=== PATIENT | male | born 2005 | race Caucasian/White ===

== ENCOUNTER 2023-10-03 17:46 | Inpatient (IN) | payer SELFPAY ==
[2023-10-03] MEDS: LORazepam 2 mg/mL INJ 1 mL IM (18:30)
[2023-10-03] MEDS: diphenhydrAMINE 50 mg/mL SDV 1mL IM (18:30)
[2023-10-03] MEDS: haloperidol inj 5 mg/mL INJ 1 mL IM (18:30)
--- NOTE | 2023-10-03 19:11 | ED.C_ITS ---
Documented by User: Harsh Bryant 10/03/23 22:53 HPI - Psych 2 General: Chief Complaint: Psychiatric Symptoms Stated Complaint: 96 eval Time Seen by Provider: 10/03/23 17:53 History of Present Illness: 18-year-old male brought in by law enfor cement chief complaint follow-up for acute psychosis patient was making homicidal suicidal threats against his family self patient has had grandiose ideas appearing to be acutely psychotic reporting that he is God as well as not sleeping and manic history is quite limited as well as his family only speaks Tuvaluan. Patient apparently did make threats about killing his brother prior to arrival upon being picked up by law enforcement patient was demonstrating both verbally aggressive and physically aggressive behavior in which she was detained patient presents to the ER for further assessment and management. Patient upon arrival did want body cams to be recorded in which she was speaking to the body cam as the people on the other side was watching him. Associated symptoms: Reports auditory hallucinations, visual hallucinations, depression, homicidal ideation and suicidal ideation Review of Systems 2 General: Reports: 10 or more systems reviewed and unremarkable except in HPI and below Const: Denies: fever(s), chills, fatigue or malaise Eyes: Denies: change in vision or blurry vision Card: Denies: chest pain or palpitations Resp: Denies: dyspnea or productive cough GI: Denies: abdominal pain, nausea or vomiting : Denies: flank pain Musc: Denies: extremity pain or extremity swelling Skin/Breast: Denies: rash or pruritus Neuro: Denies: headache(s) Psych: Reports: depression, visual hallucinations, auditory hallucinations, suicidal ideation and homicidal ideation; Denies: anxiety Jacobo/Lymph: Denies: easy bleeding All/Imm: Denies: urticaria, throat swelling or facial swelling Physical Exam 2 Const: COMMON NORMALS: no acute distress, patient oriented x3 and healthy appearing HENMT: COMMON NORMALS: normocephalic and atraumatic HEAD & SCALP: n ormocephalic and atraumatic Eye: COMMON NORMALS: Equal, round and reactive pupils present and EOMs intact bilaterally PUPIL: Yes Equal, round and reactive pupils present Neck/C-Spine: COMMON NORMALS: full ROM, supple and no JVD Lymph: LYMPHATIC: no lymphadenopathy noted Chest: COMMONS NORMALS: normal inspection of the chest and normal palpation of entire chest wall Resp: COMMON NORMALS: normal respiratory effort, No retractions and clear to auscultation bilaterally EFFORT & INSPECTION: Yes able to speak in complete sentences and Yes symmetric chest movement AUSCULTATION: clear to auscultation bilaterally Cardio: COMMON NORMALS: no JVD, regular rate and regular rhythm RATE: r egular rate RHYTHM: regular rhythm GI: COMMON NORMALS: Normal to inspection, nondistended, normoactive bowel sounds present, Soft to palpation and non-tender INSPECTION: Yes normal to inspection PALPATION: Yes Soft to palpation : COMMON NORMALS: Yes no CVA tenderness BLADDER/KIDNEY EXAM: Yes no CVA tenderness Back/Pelvis: COMMON NORMALS: no CVA tenderness Extremity: COMMON NORMALS: normal to inspection and full ROM Neuro: COMMON NORMALS: patient oriented x3, CN's II-XII intact bilaterally, moves all extremities and no focal motor deficits Psych: COMMON NORMALS: negative for mental status grossly normal, negative for Normal thought process present, negative for cooperative, negative for normal affect and negative for denies homicidal ideation (Apply direct pressure patient reports homicidal thoughts reporting he has d) THOUGHT PROCESS: abnormal Skin: COMMON NORMALS: no rashes or lesions noted GENERAL SKIN EXAM: no rashes or lesions noted Face to Face: Restrn/Seclusion Events leading up to initiation: Verbalizing threat to self or others and Combative/Striking out at staff or others Evaluation of patient's immediate situation: Alert and oriented and Signs of psychological distress Patient reaction since intervention applied: De-escalation/no displays of violent/destructive behavior Recent labs reviewed: Yes Review of medications: Yes Patient's current medical/behavioral condition: No new concerns since last ROS Need for restraint or seclusion is: No longer present Attending notified: Yes Course 2 Vital Signs: Vital signs: Vital Signs Pulse Rate 91 10/04/23 12:39 Respiratory Rate 22 H 10/03/23 20:20 Blood Pressure 121/79 10/04/23 12:39 Pulse Oximetry 99 10/04/23 12:39 Oxygen Delivery Me thod Room Air 10/04/23 12:39 MDM - Psych Medical Decision Making Due to patient's symptoms and condition because of escalating currently with delusions and paranoia and actively having hallucinations for the safety himself and others patient was started for point hard restraints due to concerns of violent behavior and active aggression also patient was provided with chemical restraints including a Haldol Benadryl and Ativan. Followed by ketamine upon sedation in which patient demonstrated but better compliance patient was mainly taken out of the hard restraints patient will need a 96-hour hold prison hold due to concerns of his acute psychosis this appears to be new patient has been using an herbal medication which may be contributing to this so we will continue to follow. Currently waiting on urine to result in be obtained otherwise remainder of patient's labs look unremarkable this patient was signed out to my colleague Dr. Alfred at 2300 still trying to find placement at this time Lab Data 10/03/23 19:42 10/03/23 19:42 Laboratory Results WBC 9.10 10^3/uL (4.5-13.0) 10/03/23 19:42 RBC 5.41 10^6/uL (3.85-5.65) 10/03/23 19:42 Hgb 15.50 g/dL (13.2-15.6) 10/03/23 19:42 Hct 45.8 % (37-53) 10/03/23 19:42 MCV 84.7 fl (82-101) 10/03/23 19:42 MCH 28.7 pg (27-33) 10/03/23 19:42 MCHC 33.8 g/dL (30-55) 10/03/23 19:42 RDW 12.5 % (12.1-15.1) 10/03/23 19:42 Plt Count 209 10^3/cmm (157-399) 10/03/23 19:42 MPV 10.0 fL (7.4-10.4) 10/03/23 19:42 Neut % (Auto) 84.5 % 10/03/23 19:42 Lymph % (Auto) 10.8 % 10/03/23 19:42 Saunders % (Auto) 3.8 % 10/03/23 19:42 Eos % (Auto) 0.1 % 10/03/23 19:42 Baso % (Auto) 0.4 % 10/03/23 19:42 Neut # (Auto) 7.68 10^3/uL (1.8-8.0) 10/03/23 19:42 Lymph # (Auto) 1.0 10^3/uL (1.5-6.5) L 10/03/23 19:42 Saunders # (Auto) 0.4 10^3/uL (0.2-0.9) 10/03/23 19:42 Eos # (Auto) 0.0 10^3/uL (0.0-0.8) 10/03/23 19:42 Baso # (Auto) 0.0 10^3/uL (0.0-0.1) 10/03/23 19:42 Nucleated RBC % (auto) 0 % 10/03/23 19:42 Nucleated RBCs # 0.0 /100WBC 10/03/23 19:42 PT 14.90 SECONDS (12.1-14.9) 10/03/23 19:42 INR 1.13 (0.8-1.2) 10/03/23 19:42 Sodium 142 mmol/L (136-145) 10/03/23 19:42 Potassium 4.0 mmol/L (3.5-5.1) 10/03/23 19:42 Chloride 105 mmol/L (98-107) 10/03/23 19:42 Carbon Dioxide 21 mmol/L (22-29) L 10/03/23 19:42 Anion Gap 20.0 (5-19) H 10/03/23 19:42 BUN 15 mg/dL (6-20) 10/03/23 19:42 Creatinine 0.9 mg/dL (0.7-1.2) 10/03/23 19:42 GFR Calculation 107.6 mL/min (90-130) 10/03/23 19:42 Glucose 123 mg/dL (65-115) H 10/03/23 19:42 Calculated Osmolality 296 mOsm/kg (285-295) H 10/03/23 19:42 Calcium 9.6 mg/dL (8.5-10.5) 10/03/23 19:42 Total Bilirubin 1.7 mg/dL (0.15-1.2) H 10/03/23 19:42 AST 25 U/L (0-40) 10/03/23 19:42 ALT 14 U/L (0-41) 10/03/23 19:42 Alkaline Phosphatase 60 U/L (40-130) 10/03/23 19:42 Total Protein 7.7 g/dL (6.6-8.7) 10/03/23 19:42 Albumin 5.2 g/dL (3.5-5.2) 10/03/23 19:42 Globulin 2.5 g/dL (1.3-4.6) 10/03/23 19:42 TSH 0.88 uIU/mL (0.27-4.20) 10/03/23 19:42 Urine Color Yellow (Yellow) 10/04/23 03:34 Urine Appearance Clear (CLEAR) 10/04/23 03:34 Urine pH 5.5 (5-7) 10/04/23 03:34 Ur Specific [place] 1.024 (1.005-1.030) 10/04/23 03:34 Urine Protein Negative (Negative) 10/04/23 03:34 Urine Glucose (UA) Negative (Normal) 10/04/23 03:34 Urine Ketones 3+ (Negative) H 10/04/23 03:34 Urine Blood Negative (Negative) 10/04/23 03:34 Urine Nitrate Negative (Negative) 10/04/23 03:34 Urine Bilirubin Negative (Negative) 10/04/23 03:34 Urine Urobilinogen 1.0 mg/dL (Negative) 10/04/23 03:34 Ur Leukocyte Esterase Negative (Negative) 10/04/23 03:34 Urine RBC 0-2 /hpf (0-2) 10/04/23 03:34 Urine WBC 0-5 /hpf (0-5) 10/04/23 03:34 Ur Squamous Epith Cells 0-5 /hpf (0-5) 10/04/23 03:34 Amorphous Sediment Not Reportable 10/04/23 03:34 Urine Bacteria None seen /hpf (NONE) 10/04/23 03:34 Hyaline Casts 1.65 /lpf 10/04/23 03:34 Salicylates < 0.3 mg/dL (3-10) L 10/03/23 19:42 Urine Opiates Screen Negative ng/mL (Negative) 10/04/23 03:34 Acetaminophen < 5.0 ug/mL (10-30) L 10/03/23 19:42 Ur Barbiturates Screen Negative ng/mL (Negative) 10/04/23 03:34 Ur Phencyclidine Scrn Negative ng/mL (Negative) 10/04/23 03:34 Ur Amphetamines Screen Negative ng/mL (Negative) 10/04/23 03:34 U Benzodiazepines Scrn Positive ng/mL (Negative) H 10/04/23 03:34 Urine Cocaine Screen Negative ng/mL (Negative) 10/04/23 03:34 U Marijuana (THC) Screen Positive ng/mL (Negative) H 10/04/23 03:34 Ethyl Alcohol < 10 mg/dL (0-10) 10/03/23 19:42 Influenza Type A Ag negative (Negative) 10/03/23 19:42 Influenza Type B Ag negative (Negative) 10/03/23 19:42 RSV Antigen Negative (Negative) 10/03/23 19:42 SARS-CoV-2 Ag (Rapid) negative (Negative) 10/03/23 19:42 No radiology studies performed this visit Discharge Plan Discharge Patient Disposition: Admitted As Inpatient Admit Provider: Roberth Scherer Clinical Impression: Acute psychosis Condition: Stable Coding Level of Care Code ED Street Roller Engineer for Chg Fwd Documented by User: Yuri Willis MD 10/05/23 15:13 HPI - Psych 2 General: Chief Complaint: Psychiatric Symptoms Stated Complaint: 96 eval Time Seen by Provider: 10/03/23 17:53 Course 2 Vital Signs: Vital signs: Vital Signs Pulse Rate 91 10/04/23 12:39 Respiratory Rate 22 H 10/03/23 20:20 Blood Pressure 121/79 10/04/23 12:39 Pulse Oximetry 99 10/04/23 12:39 Oxygen Delivery Me thod Room Air 10/04/23 12:39 MDM - Psych Medical Decision Making Due to patient's symptoms and condition because of escalating currently with delusions and paranoia and actively having hallucinations for the safety himself and others patient was started for point hard restraints due to concerns of violent behavior and active aggression also patient was provided with chemical restraints including a Haldol Benadryl and Ativan. Followed by ketamine upon sedation in which patient demonstrated but better compliance patient was mainly taken out of the hard restraints patient will need a 96-hour hold prison hold due to concerns of his acute psychosis this appears to be new patient has been using an herbal medication which may be contributing to this so we will continue to follow. Currently waiting on urine to result in be obtained otherwise remainder of patient's labs look unremarkable this patient was signed out to my colleague Dr. Alfred at 2300 still trying to find placement at this time Patient presents here with acute psychosis he is medically cleared attempted to transfer was unable to find placement we do now have bed availability I spoke to our psychiatrist and will admit here. Lab Data 10/03/23 19:42 10/03/23 19:42 Laboratory Results WBC 9.10 10^3/uL (4.5-13.0) 10/03/23 19:42 RBC 5.41 10^6/uL (3.85-5.65) 10/03/23 19:42 Hgb 15.50 g/dL (13.2-15.6) 10/03/23 19:42 Hct 45.8 % (37-53) 10/03/23 19:42 MCV 84.7 fl (82-101) 10/03/23 19:42 MCH 28.7 pg (27-33) 10/03/23 19:42 MCHC 33.8 g/dL (30-55) 10/03/23 19:42 RDW 12.5 % (12.1-15.1) 10/03/23 19:42 Plt Count 209 10^3/cmm (157-399) 10/03/23 19:42 MPV 10.0 fL (7.4-10.4) 10/03/23 19:42 Neut % (Auto) 84.5 % 10/03/23 19:42 Lymph % (Auto) 10.8 % 10/03/23 19:42 Saunders % (Auto) 3.8 % 10/03/23 19:42 Eos % (Auto) 0.1 % 10/03/23 19:42 Baso % (Auto) 0.4 % 10/03/23 19:42 Neut # (Auto) 7.68 10^3/uL (1.8-8.0) 10/03/23 19:42 Lymph # (Auto) 1.0 10^3/uL (1.5-6.5) L 10/03/23 19:42 Saunders # (Auto) 0.4 10^3/uL (0.2-0.9) 10/03/23 19:42 Eos # (Auto) 0.0 10^3/uL (0.0-0.8) 10/03/23 19:42 Baso # (Auto) 0.0 10^3/uL (0.0-0.1) 10/03/23 19:42 Nucleated RBC % (auto) 0 % 10/03/23 19:42 Nucleated RBCs # 0.0 /100WBC 10/03/23 19:42 PT 14.90 SECONDS (12.1-14.9) 10/03/23 19:42 INR 1.13 (0.8-1.2) 10/03/23 19:42 Sodium 142 mmol/L (136-145) 10/03/23 19:42 Potassium 4.0 mmol/L (3.5-5.1) 10/03/23 19:42 Chloride 105 mmol/L (98-107) 10/03/23 19:42 Carbon Dioxide 21 mmol/L (22-29) L 10/03/23 19:42 Anion Gap 20.0 (5-19) H 10/03/23 19:42 BUN 15 mg/dL (6-20) 10/03/23 19:42 Creatinine 0.9 mg/dL (0.7-1.2) 10/03/23 19:42 GFR Calculation 107.6 mL/min (90-130) 10/03/23 19:42 Glucose 123 mg/dL (65-115) H 10/03/23 19:42 Calculated Osmolality 296 mOsm/kg (285-295) H 10/03/23 19:42 Calcium 9.6 mg/dL (8.5-10.5) 10/03/23 19:42 Total Bilirubin 1.7 mg/dL (0.15-1.2) H 10/03/23 19:42 AST 25 U/L (0-40) 10/03/23 19:42 ALT 14 U/L (0-41) 10/03/23 19:42 Alkaline Phosphatase 60 U/L (40-130) 10/03/23 19:42 Total Protein 7.7 g/dL (6.6-8.7) 10/03/23 19:42 Albumin 5.2 g/dL (3.5-5.2) 10/03/23 19:42 Globulin 2.5 g/dL (1.3-4.6) 10/03/23 19:42 TSH 0.88 uIU/mL (0.27-4.20) 10/03/23 19:42 Urine Color Yellow (Yellow) 10/04/23 03:34 Urine Appearance Clear (CLEAR) 10/04/23 03:34 Urine pH 5.5 (5-7) 10/04/23 03:34 Ur Specific [place] 1.024 (1.005-1.030) 10/04/23 03:34 Urine Protein Negative (Negative) 10/04/23 03:34 Urine Glucose (UA) Negative (Normal) 10/04/23 03:34 Urine Ketones 3+ (Negative) H 10/04/23 03:34 Urine Blood Negative (Negative) 10/04/23 03:34 Urine Nitrate Negative (Negative) 10/04/23 03:34 Urine Bilirubin Negative (Negative) 10/04/23 03:34 Urine Urobilinogen 1.0 mg/dL (Negative) 10/04/23 03:34 Ur Leukocyte Esterase Negative (Negative) 10/04/23 03:34 Urine RBC 0-2 /hpf (0-2) 10/04/23 03:34 Urine WBC 0-5 /hpf (0-5) 10/04/23 03:34 Ur Squamous Epith Cells 0-5 /hpf (0-5) 10/04/23 03:34 Amorphous Sediment Not Reportable 10/04/23 03:34 Urine Bacteria None seen /hpf (NONE) 10/04/23 03:34 Hyaline Casts 1.65 /lpf 10/04/23 03:34 Salicylates < 0.3 mg/dL (3-10) L 10/03/23 19:42 Urine Opiates Screen Negative ng/mL (Negative) 10/04/23 03:34 Acetaminophen < 5.0 ug/mL (10-30) L 10/03/23 19:42 Ur Barbiturates Screen Negative ng/mL (Negative) 10/04/23 03:34 Ur Phencyclidine Scrn Negative ng/mL (Negative) 10/04/23 03:34 Ur Amphetamines Screen Negative ng/mL (Negative) 10/04/23 03:34 U Benzodiazepines Scrn Positive ng/mL (Negative) H 10/04/23 03:34 Urine Cocaine Screen Negative ng/mL (Negative) 10/04/23 03:34 U Marijuana (THC) Screen Positive ng/mL (Negative) H 10/04/23 03:34 Ethyl Alcohol < 10 mg/dL (0-10) 10/03/23 19:42 Influenza Type A Ag negative (Negative) 10/03/23 19:42 Influenza Type B Ag negative (Negative) 10/03/23 19:42 RSV Antigen Negative (Negative) 10/03/23 19:42 SARS-CoV-2 Ag (Rapid) negative (Negative) 10/03/23 19:42 Discharge Plan Discharge Patient Disposition: Admitted As Inpatient Admit Provider: Roberth Scherer Clinical Impression: Acute psychosis Condition: Stable Coding Level of Care Code ED Street Roller Engineer for Cristopher Sheppard
[2023-10-03] MEDS: ketamine 100 mg/mL Inj 5 mL 240 MG IM (19:20)
[2023-10-03 19:26] VITALS: BP 153/86; PULSE 131; RESP 20; O2SAT 98
--- NOTE | 2023-10-03 19:32 | ECG_ITS ---
[facility] Test Date: 2023-10-03 Pat Name: Colt Prescott Department: Room: Gender: Male Medicare Nurse: : 2005 Requested By: Harsh Bryant Order Number: [id number] Reading MD: RALEIGH TALLEY Measurements Intervals [place] Rate: 126 P: 64 TX: 124 QRS: 76 QRSD: 102 T: 29 QT: 335 QTc: 487 Interpretive Statements SINUS TACHYCARDIA NONSPECIFIC ST & T-WAVE ABNORMALITY ABNORMAL RHYTHM ECG No previous ECG available for comparison Electronically Signed On 10-04-2023 20:23:29 CDT by RALEIGH TALLEY [email or web address]
[2023-10-03 19:44] VITALS: BP 153/86; PULSE 100; RESP 25; O2SAT 98
[2023-10-03 19:49] LABS: Basophils % 0.4 %; Eosinophils % 0.1 %; Hematocrit 45.8 % (37-53); Lymphocytes % 10.8 %; Mean Corpuscular HGB Conc 33.8 g/dL (30-55); Mean Corpuscular Hemoglobin 28.7 pg (27-33); Mean Corpuscular Volume 84.7 fl (82-101); Monocytes # 0.4 10^3/uL (0.2-0.9); Monocytes % 3.8 %; Neutrophils # 7.68 10^3/uL (1.8-8.0); Neutrophils % 84.5 %; Nucleated Red Blood Cells % 0 %; Platelet Count 209 10^3/cmm (157-399); Red Blood Count 5.41 10^6/uL (3.85-5.65); Red Cell Distribution Width 12.5 % (12.1-15.1)
[2023-10-03 19:55] VITALS: BP 154/117; PULSE 115; RESP 22; O2SAT 97
[2023-10-03 20:02] LABS: INR 1.13 (0.8-1.2)
[2023-10-03 20:15] VITALS: BP 139/80; PULSE 115; RESP 24; O2SAT 99
[2023-10-03 20:20] VITALS: BP 139/80; PULSE 127; RESP 22; O2SAT 98
[2023-10-03 20:21] LABS: Alanine Aminotransferase 14 U/L (0-41); Albumin Level 5.2 g/dL (3.5-5.2); Alkaline Phosphatase 60 U/L (40-130); Aspartate Amino Transferase 25 U/L (0-40); Blood Urea Nitrogen 15 mg/dL (6-20); Calcium 9.6 mg/dL (8.5-10.5); Carbon Dioxide 21 mmol/L (22-29); Chloride 105 mmol/L (98-107); Globulin 2.5 g/dL (1.3-4.6); Glomerular Filtration Rate 107.6 mL/min (90-130); Glucose 123 mg/dL (65-115); Osmolality Calculated 296 mOsm/kg (285-295); Sodium 142 mmol/L (136-145); Thyroid Stimulating Hormone 0.88 uIU/mL (0.27-4.20); Total Bilirubin 1.7 mg/dL (0.15-1.2); Total Protein 7.7 g/dL (6.6-8.7)
[2023-10-03 20:24] LABS: Acetaminophen < 5.0 ug/mL (10-30); Alcohol Level < 10 mg/dL (0-10); Salicylate < 0.3 mg/dL (3-10)
--- NOTE | 2023-10-03 20:32 | PC.NURSE ---
Addendum entered by Gita Cedillo RN 10/03/23 20:34: *him. Grinder Machine Knife Setter Daisy Jaramillo was present at bedside at the time of presentation of Rights. Original Note: 96 Hour Involuntary Hold Patient Rights have been read to the patient and a copy of the same has been given to hime
--- NOTE | 2023-10-03 20:35 | PC.NURSE ---
pt requesting monitoring be removed. pt is able to walk independently at this time. monitoring removed. pt given sandwich, water, and coke poured in a cup.
[2023-10-03 21:00] LABS: Influenza A by IFA negative (Negative); Influenza B by IFA negative (Negative); RSV Transfer Patient (ED) Negative (Negative); SARS Covid-2 Antigen negative (Negative)
[2023-10-04 03:40] LABS: Charge for UA Resulting for Rev
[2023-10-04 03:43] LABS: Bilirubin Urine Negative (Negative); Blood Urine Negative (Negative); Glucose Urine UA Negative (Normal); Ketones Urine 3+ (Negative); Leukocyte Esterase Urine Negative (Negative); Nitrate Urine Negative (Negative); Protein Urine Negative (Negative); Specific Gravity, Urine 1.024 (1.005-1.030); Urine Appearance Clear (CLEAR); Urine Color Yellow (Yellow); pH Urine 5.5 (5-7)
[2023-10-04 03:48] LABS: Bacteria Urine None Seen /hpf; Hyaline Casts Urine 1.65 /lpf; RBC Urine 0-2 /hpf (0-2); Squamous Epithelial Cell Urine 0-5 /hpf (0-5); WBC Urine 0-5 /hpf (0-5)
[2023-10-04 03:51] LABS: Amphetamines Screen Urine Negative (Negative); Barbiturates Screen Urine Negative (Negative); Benzodiazepines Screen Urine Positive (Negative); Cocaine Screen Urine Negative (Negative); Opiate Screen Urine Negative (Negative); PCP Screen Urine Negative (Negative); THC Screen Urine Positive (Negative)
[2023-10-04 12:39] VITALS: BP 121/79; PULSE 91; O2SAT 99
--- NOTE | 2023-10-04 13:04 | PC.NURSE ---
PT HAS BEEN CALM AND COOPERATIVE TODAY. PT HAS BEEN POLITE WITH NO AGGRESSIVE BEHAVIORS.
--- NOTE | 2023-10-04 13:50 | PC.NURSE ---
PT INFORMATION FAXED TO FOLLOWING FACILITIES [facility]
[2023-10-05] MEDS: OLANZapine 10 mg ODT 20 MG PO (04:58)
[2023-10-05 15:00] VITALS: BP 139/79; O2SAT 99
[2023-10-05 21:44] VITALS: BP 154/80; PULSE 73; RESP 18; TEMP 36.6; O2SAT 100
[2023-10-05] MEDS: trazodone 50 mg Tablet PO (23:48)
[2023-10-05 23:49] VITALS: BMI 24.7
[2023-10-06] MEDS: hyDROXYzine 25 mg Capsule 50 MG PO (00:34)
[2023-10-06] MEDS: OLANZapine 5 mg ODT PO ×2 (02:54→21:05)
[2023-10-06 06:00] VITALS: BP 122/82; PULSE 93; RESP 18; O2SAT 98
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
--- NOTE | 2023-10-06 10:05 | PC.NURSE ---
During assessment, patient stated that he is doing really good, confident, I feel like I am learning from being here. About anxiety, patient said rarely, just when something doesn't go my way. Patient denies depression. When asked about SI and HI, patient stated never . Patient replied with never when asked if he experiences auditory or visual hallucinations. Patient said that he is afraid that he is going to become sixk while on the unit because it is too cold here for him. This nurse has provided him with warm teas and offered an extra blanket. Patient calm during assessment. patient denies any questions.
[2023-10-06 14:00] VITALS: BP 131/77; PULSE 102; RESP 17; TEMP 36.7; O2SAT 99
[2023-10-06 19:43] VITALS: BP 120/78; PULSE 88; RESP 18; TEMP 37.1; O2SAT 97
[2023-10-06] MEDS: trazodone 50 mg Tablet PO (23:48)
[2023-10-07] MEDS: trazodone 50 mg Tablet PO (00:46)
[2023-10-07 06:00] VITALS: BP 118/77; PULSE 85; RESP 18; TEMP 36.7; O2SAT 95
--- NOTE | 2023-10-07 06:12 | PC.NURSE ---
BEHAVIORAL Pt has came up to the window several time throughout the night talking to nursing staff about the world championship for Ranjeet. 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 Pt will also come up and say random things such as i dont think this place is meant for people who have a high IQ like me and it takes a healthy brain to be a winner, that's how i know im not crazy. Pt received Trazodone 50mg Po and Zyprexa 5mg PO. Pt was able to sleep around 2 1/2 hours this evening. Behavioral monitoring continues
--- NOTE | 2023-10-07 12:06 | PC.NURSE ---
PT CAME TO NURSES STATION TELLING STAFF HE CAN CURE AUTISM. 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
[2023-10-07 14:00] VITALS: BP 130/87; PULSE 109; RESP 18; TEMP 37; O2SAT 98
[2023-10-07 20:05] VITALS: BP 136/88; PULSE 101; RESP 18; O2SAT 99
--- NOTE | 2023-10-07 21:43 | P.NPUPN_ITS ---
Subjective NPU 2 Subjective: Patient presented today reporting that he does not think that there is any thing going on. We discussed our concerns for psychosis and discussed the possibility that marijuana is a contributing factor to his presentation. He was ambivalent about taking medication but as we discussed the likelihood of a 21-day hold he reported that he would sleep on it and we could talk about it tomorrow. Mental Status Exam 2 MSE Comments: This is a slender well-developed white male in hospital scrubs with limited grooming and eye contact. No abnormal movements except for mild psychomotor retardation. Cooperative with exam in mild distress. Speech was mostly decreased rate and volume. Mood described as great, affect odd. Thought process was linear and mostly organized. Thought content: Patient denied suicidal or homicidal ideation , there were no delusions reported but concerns for grandiose delusions noted, he denied auditory and visual hallucinations. The patient appears to be in a positive mood, rating it as 10 out of 10. He denies any current thoughts of self-harm or harm to others. He does not feel paranoid or report any hallucinations. Attention and concentration were intact and memory appeared mostly reliable but none were formally tested. He is alert and oriented x 3. Insight and judgment limited, impulse control is limited. Vitals/I&O/Wt Last Vital Signs Temp 98.6 F 10/07/23 14:00 Pulse 101 H 10/07/23 20:05 Resp 18 10/07/23 20:05 BP 136/88 10/07/23 20:05 Pulse Ox 99 10/07/23 20:05 O2 Del Method Room Air 10/06/23 06:00 Weight last 48 hrs Weight 76.204 kg Data NPU 10/03/23 19:42 10/03/23 19:42 A&P Assessment and plan (1) Acute psychosis: Plan This is a 18-year-old white male with no clear history of mental health treatment with possible history of ADHD and learning issues, with active addiction and concerns for psychosis possibly related to the cannabis use who presents with a unique perspective on life. 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 which may be delusional. He denies any mental health issues, although his behavior led to his admission to the hospital. 1. Discussed starting Invega versus Abilify and agreed we would discuss again tomorrow. 2. Continue every 15 minute checks for safety. 3. Encourage individual, group and milieu therapies. 4. Obtain collateral information on what his baseline actually is. 5. Encourage sober living treatment after discharge at the highest level of care to which he is willing to commit. Involuntary Hold Information 2 96 Hour Hold: 96 Hour Involuntary Admission: Yes 96 Hour Hold Ending Date: 10/09/23 96 Hour Hold Ending Time: 19:46 Attestations NPU 2 Medical Necessity Statement*: Inpatient hospitalization is medically necessary and the clinically appropriate intervention at this time. We will monitor medication to make changes as indicated. His likely length of stay 3-5 days. Coding Level of Care Code Acute Code for [facility] Fwd Diagnoses Acute psychosis F23
[2023-10-08] MEDS: OLANZapine 5 mg ODT PO (00:33)
[2023-10-08 06:00] VITALS: RESP 16
--- NOTE | 2023-10-08 06:36 | PC.NURSE ---
pt has not slept much pt was sleeping when i went to get vitals did not get them his resp are 16
[2023-10-08 14:00] VITALS: BP 137/84; PULSE 95; RESP 16; TEMP 37; O2SAT 99
--- NOTE | 2023-10-08 16:16 | W.PM.NPUPNS ---
Subjective NPU Subjective: Patient presented today reporting he is ready to go home. We discussed concerns about his psychosis and the need for medication. He was initially resistant to medication and said he would consider starting something today. We discussed the 21-day hold process and the fact that ultimately we were likely going to file for 21-day hold and then he will be able to work with the director of billing to determine whether the director of billing agree with his desire to discharge or our desire to continue treatment. Mental Status Exam MSE Comments: This is a slender well-developed white male in hospital scrubs with limited grooming and eye contact. No abnormal movements except for mild psychomotor retardation. Cooperative with exam in mild distress. Speech was mostly decreased rate and volume. Mood described as great, affect odd. Thought process was linear and mostly organized. Thought content: Patient denied suicidal or homicidal ideation , there were no delusions reported but concerns for grandiose delusions noted, he denied auditory and visual hallucinations. The patient appears to be in a positive mood, rating it as 10 out of 10. He denies any current thoughts of self-harm or harm to others. He does not feel paranoid or report any hallucinations. Attention and concentration were intact and memory appeared mostly reliable but none were formally tested. He is alert and oriented x 3. Insight and judgment limited, impulse control is limited. Vitals/I&O/Wt Last Vital Signs Temp 98.6 F 10/08/23 14:00 Pulse 95 10/08/23 14:00 Resp 16 10/08/23 14:00 BP 137/84 10/08/23 14:00 Pulse Ox 99 10/08/23 14:00 O2 Del Method Room Air 10/06/23 06:00 Data NPU 10/03/23 19:42 10/03/23 19:42 A&P Assessment and plan (1) Acute psychosis: Plan This is a 18-year-old white male with no clear history of mental health treatment with possible history of ADHD and learning issues, with active addiction and concerns for psychosis possibly related to the cannabis use who presents with a unique perspective on life. 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 which may be delusional. He denies any mental health issues, although his behavior led to his admission to the hospital. 1. Discussed starting Invega. 2. Continue every 15 minute checks for safety. 3. Encourage individual, group and milieu therapies. 4. Obtain collateral information on what his baseline actually is. 5. Encourage sober living treatment after discharge at the highest level of care to which he is willing to commit. 6. Will likely file for 21-day hold tomorrow. Involuntary Hold Information 96 Hour Hold: 96 Hour Involuntary Admission: Yes 96 Hour Hold Ending Date: 10/09/23 96 Hour Hold Ending Time: 19:46 Attestations NPU Medical Necessity Statement*: Inpatient hospitalization is medically necessary and the clinically appropriate intervention at this time. We will monitor medication to make changes as indicated. His likely length of stay 3-5 days. Coding Level of Care Code Acute Code for [facility] Fwd Diagnoses Acute psychosis F23
[2023-10-08] MEDS: paliperidone ER 3 mg Tablet PO (19:10)
[2023-10-08 20:18] VITALS: BP 110/69; PULSE 100; RESP 18; TEMP 36.7; O2SAT 97
[2023-10-08] MEDS: hyDROXYzine 25 mg Capsule 50 MG PO (22:56)
[2023-10-08] MEDS: trazodone 50 mg Tablet PO (22:57)
[2023-10-09] MEDS: haloperidol 5 mg Tablet PO (00:07)
[2023-10-09 06:00] VITALS: BP 120/81; PULSE 100; RESP 16; O2SAT 99
[2023-10-09] MEDS: paliperidone ER 6 mg Tablet PO (08:21)
--- NOTE | 2023-10-09 09:27 | PC.NURSE ---
SITTING ON BED. PT WENT ON A TANGENT ABOUT WINNING A 1.8 MILLION DOLLARS ON [place], I'M THE BEST PLAYER AND I CAN WIN, AND YOU CAN TOO. PT IS NOTED TO HAVE ANIMATED, RAPID, EXCESSIVE SPEECH AND HYPER-FOCUSED ON GETTING MY DOUBLE PORTIONS. PT WAS ASSURED THIS RN WOULD CALL DOWN AND MAKE SURE THAT DOUBLE PORTIONS ARE ORDERED. PT DENIES SI/HI AND AVH AT THIS TIME. PT ANSWERS EACH QUESTION WITH INCORRECT, INCORRECT. STATES HE SLEPT WELL. ALL QUESTION ANSWERED AND SUPPORT VOICED.
[2023-10-09 14:00] VITALS: BP 123/83; PULSE 96; RESP 17; TEMP 36.7; O2SAT 99
--- NOTE | 2023-10-09 14:18 | P.NPUPN_ITS ---
Subjective NPU 2 Subjective: Patient presented today reporting that he is doing okay with the initiation of the Invega. We continue to work with his family and patient to identify the concerns that they were seeing at home. We discussed the plan for initiating a 21-day hold to continue to manage his psychosis. He denied any side effects of the medication. Mental Status Exam 2 MSE Comments: This is a slender well-developed white male in hospital scrubs with limited grooming and eye contact. No abnormal movements except for mild psychomotor retardation. Cooperative with exam in mild distress. Speech was mostly decreased rate and volume. Mood described as great, affect odd. Thought process was linear and mostly organized. Thought content: Patient denied suicidal or homicidal ideation , there were no delusions reported but concerns for grandiose delusions noted, he denied auditory and visual. He denies any current thoughts of self-harm or harm to others. He does not feel paranoid or report any hallucinations. Attention and concentration were intact and memory appeared mostly reliable but none were formally tested. He is alert and oriented x 3. Insight and judgment limited, impulse control is limited. Vitals/I&O/Wt Last Vital Signs Temp 98.0 F 10/08/23 20:18 Pulse 100 10/09/23 06:00 Resp 16 10/09/23 06:00 BP 120/81 10/09/23 06:00 Pulse Ox 99 10/09/23 06:00 O2 Del Method Room Air 10/06/23 06:00 Data NPU 10/03/23 19:42 10/03/23 19:42 A&P Assessment and plan (1) Acute psychosis: Plan This is a 18-year-old white male with no clear history of mental health treatment with possible history of ADHD and learning issues, with active addiction and concerns for psychosis possibly related to the cannabis use who presents with a unique perspective on life. 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 which may be delusional. He denies any mental health issues, although his behavior led to his admission to the hospital. 1. Started Invega 6 mg p.o. daily 2. Continue every 15 minute checks for safety. 3. Encourage individual, group and milieu therapies. 4. Obtain collateral information on what his baseline actually is. 5. Encourage sober living treatment after discharge at the highest level of care to which he is willing to commit. 6. Filed for 21-day hold. Involuntary Hold Information 2 96 Hour Hold: 96 Hour Involuntary Admission: Yes 96 Hour Hold Ending Date: 10/09/23 96 Hour Hold Ending Time: 19:46 Attestations NPU 2 Medical Necessity Statement*: Inpatient hospitalization is medically necessary and the clinically appropriate intervention at this time. We will monitor medication to make changes as indicated. His likely length of stay 3-5 days. Coding Level of Care Code Acute Code for [facility] Fwd Diagnoses Acute psychosis F23
[2023-10-09 19:34] VITALS: BP 125/78; PULSE 114; RESP 17; TEMP 36.8; O2SAT 98
[2023-10-10 06:00] VITALS: BP 107/69; PULSE 128; RESP 18; TEMP 36.7; O2SAT 98
--- NOTE | 2023-10-10 07:54 | PC.NURSE ---
Patient denies any pain and si/hi. When asked if he was experiencing any hallucinations he stated, no I see fine. If I'm having any hallucinations it's through my glasses. When asked if he slept well last night he stated that he did, but that he felt like he was in a total body drift. Patient could not elaborate on what he meant by this.
[2023-10-10] MEDS: paliperidone ER 6 mg Tablet PO (08:26)
[2023-10-10 14:00] VITALS: BP 112/75; PULSE 112; RESP 20; TEMP 37.3; O2SAT 94
[2023-10-10 17:39] LABS: SARS Covid-2 Antigen Negative (Negative)
--- NOTE | 2023-10-10 18:00 | W.PM.NPUPNS ---
Subjective NPU Subjective: Patient presented today reporting that he is feeling all right. He continues to sleep a lot and there are concerns that he may have been a person that was exposed and had COVID. He did not test positive but we explained that we will continue to monitor as other individuals have tested positive. He continued to report delusional content and we continued to discuss him need to be in the hospital till he felt something to help with his symptoms. He denied any side effects to the medication other than possibly lethargy/somnolence. Mental Status Exam MSE Comments: This is a slender well-developed white male in hospital scrubs with limited grooming and eye contact. No abnormal movements except for mild psychomotor retardation. Cooperative with exam in mild distress. Speech was mostly decreased rate and volume. Mood described as great, affect odd. Thought process was linear and mostly organized. Thought content: Patient denied suicidal or homicidal ideation , there were no delusions reported but concerns for grandiose delusions noted, he denied auditory and visual. He denies any current thoughts of self-harm or harm to others. He does not feel paranoid or report any hallucinations. Attention and concentration were intact and memory appeared mostly reliable but none were formally tested. He is alert and oriented x 3. Insight and judgment limited, impulse control is limited. Vitals/I&O/Wt Last Vital Signs Temp 99.2 F 10/10/23 14:00 Pulse 112 H 10/10/23 14:00 Resp 20 H 10/10/23 14:00 BP 112/75 10/10/23 14:00 Pulse Ox 94 10/10/23 14:00 O2 Del Method Room Air 10/10/23 06:00 Data NPU 10/03/23 19:42 10/03/23 19:42 A&P Assessment and plan (1) Acute psychosis: Plan This is a 18-year-old white male with no clear history of mental health treatment with possible history of ADHD and learning issues, with active addiction and concerns for psychosis possibly related to the cannabis use who presents with a unique perspective on life. 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 which may be delusional. He denies any mental health issues, although his behavior led to his admission to the hospital. 1. Started Invega 6 mg p.o. daily. 2. Continue every 15 minute checks for safety. 3. Encourage individual, group and milieu therapies. 4. Obtain collateral information on what his baseline actually is. 5. Encourage sober living treatment after discharge at the highest level of care to which he is willing to commit. 6. Filed for 21-day hold. Hearing on Friday. 7. Tested for COVID and tested negative but will retest tomorrow if continues to have significant lethargy or any other symptoms. Involuntary Hold Information 96 Hour Hold: 96 Hour Involuntary Admission: Yes 96 Hour Hold Ending Date: 10/09/23 96 Hour Hold Ending Time: 19:46 Attestations NPU Medical Necessity Statement*: Inpatient hospitalization is medically necessary and the clinically appropriate intervention at this time. We will monitor medication to make changes as indicated. His likely length of stay 5-7 days. Coding Level of Care Code Acute Code for [facility] Fwd Diagnoses Acute psychosis F23
[2023-10-10 20:00] VITALS: BP 107/64; PULSE 105; RESP 18; TEMP 36.9; O2SAT 97
[2023-10-11 00:17] VITALS: BP 117/76; PULSE 118; RESP 18; TEMP 36.6; O2SAT 99
[2023-10-11 04:00] VITALS: BP 111/75; PULSE 119; RESP 17; TEMP 36.5; O2SAT 98
--- NOTE | 2023-10-11 07:39 | P.NPUPN_ITS ---
Subjective NPU 2 Subjective: Patient presented today reporting that he is feeling better and not having any hypersomnolence or lethargy. We discussed concerns that those symptoms could be part of a virus going around. However he discussed not switching the timing of the medication as he was not feeling tired at all this morning. He was agreeable to taking the Invega Sustenna if recommended but continued to talk about discharge as if it would happen today which is his wish with no discernible insight into his illness. We continued to talk about not using cannabis and Dr. Fowler being here tomorrow to continue treatment. And make any necessary decisions. He denied any side effects to the medication. Mental Status Exam 2 MSE Comments: This is a slender well-developed white male in hospital scrubs with limited grooming and eye contact. No abnormal movements except for mild psychomotor retardation. Cooperative with exam in mild distress. Speech was mostly decreased rate and volume. Mood described as great, affect odd. Thought process was linear and mostly organized. Thought content: Patient denied suicidal or homicidal ideation , there were no delusions reported but concerns for grandiose delusions noted, he denied auditory and visual. He denies any current thoughts of self-harm or harm to others. He does not feel paranoid or report any hallucinations. Attention and concentration were intact and memory appeared mostly reliable but none were formally tested. He is alert and oriented x 3. Insight and judgment limited, impulse control is limited. Vitals/I&O/Wt Last Vital Signs Temp 97.7 F 10/11/23 04:00 Pulse 119 H 10/11/23 04:00 Resp 17 10/11/23 04:00 BP 111/75 10/11/23 04:00 Pulse Ox 98 10/11/23 04:00 O2 Del Method Room Air 10/11/23 04:00 Data NPU 10/03/23 19:42 10/03/23 19:42 A&P Assessment and plan (1) Acute psychosis: Plan This is a 18-year-old white male with no clear history of mental health treatment with possible history of ADHD and learning issues, with active addiction and concerns for psychosis possibly related to the cannabis use who presents with a unique perspective on life. 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 which may be delusional. He denies any mental health issues, although his behavior led to his admission to the hospital. 1. Started Invega 6 mg p.o. daily. 2. Continue every 15 minute checks for safety. 3. Encourage individual, group and milieu therapies. 4. Obtain collateral information on what his baseline actually is. 5. Encourage sober living treatment after discharge at the highest level of care to which he is willing to commit. 6. Filed for 21-day hold. Hearing on Friday. 7. Tested for COVID and tested negative but will retest tomorrow if continues to have significant lethargy or any other symptoms. Involuntary Hold Information 2 96 Hour Hold: 96 Hour Involuntary Admission: Yes 96 Hour Hold Ending Date: 10/09/23 96 Hour Hold Ending Time: 19:46 Attestations NPU 2 Medical Necessity Statement*: Inpatient hospitalization is medically necessary and the clinically appropriate intervention at this time. We will monitor medication to make changes as indicated. His likely length of stay 5-7 days. Coding Level of Care Code Acute Code for [facility] Fwd Diagnoses Acute psychosis F23
[2023-10-11 08:00] VITALS: BP 123/67; PULSE 124; RESP 18; TEMP 36.7; O2SAT 99
[2023-10-11] MEDS: paliperidone ER 6 mg Tablet PO (08:26)
[2023-10-11 12:00] VITALS: BP 114/72; PULSE 85; RESP 18; TEMP 37.7; O2SAT 94
--- NOTE | 2023-10-11 12:43 | PC.NURSE ---
Patient served paperwork for [address] [facility]. Security Colt present. Patient tolerated well. This nurse educated patient on the [address] and its process. Questions answered. Patient stated, I trust my doctor.
[2023-10-11 16:00] VITALS: BP 113/73; PULSE 109; RESP 18; TEMP 37.5; O2SAT 97
[2023-10-11 19:35] VITALS: BP 111/69; PULSE 145; RESP 18; TEMP 37.3; O2SAT 99
[2023-10-12] VITALS: BP 127/75; PULSE 143; RESP 18; TEMP 37.4; O2SAT 97
[2023-10-12 04:00] VITALS: BP 107/70; PULSE 136; RESP 18; TEMP 37.2; O2SAT 96
[2023-10-12 06:00] VITALS: BMI 24.7
[2023-10-12 08:00] VITALS: BP 125/75; PULSE 143; RESP 18; TEMP 36.7; O2SAT 95
[2023-10-12] MEDS: paliperidone ER 6 mg Tablet PO (09:17)
[2023-10-12 11:52] VITALS: BP 99/64; PULSE 94; RESP 16; TEMP 36.6; O2SAT 95
[2023-10-12 16:00] VITALS: BP 122/75; PULSE 103; RESP 16; TEMP 37.3; O2SAT 96
--- NOTE | 2023-10-12 18:12 | P.NPUPN_ITS ---
Subjective NPU 2 Subjective: Colt is a 18-year-old male who had been admitted with psychosis currently on a 21-day hold. He had reported that he may have been receiving treatment for suzan when he came here as he had appeared allegedly grandiose. He had stated that he had been sleeping better. He continued to state that he would be making a significant amount of zaidi by playing online fortnight. He had continued to minimize the use of cannabis. He had stated that his family had not been informed that he was here in the hospital. He had described his hospitalization as a misunderstanding and continued to report that he wished to return home despite not being able to provide any reason as to why he had been in the hospital or how he had been placed in the hospital. Patient did not appear to show any evidence of aggression here. He had reported no side effects from his current medication regimen. He reported adequate sleep here. Mental Status Exam 2 MSE Comments: This is a slender well-developed white male in hospital scrubs with limited grooming and eye contact. No abnormal movements except for mild psychomotor retardation. He was cooperative with exam in mild distress. Speech was mostly decreased in rate and volume. Mood described as great. His affect was odd and subdued and mood incongruent. Thought process was linear and mostly organized. Thought content: Patient denied suicidal or homicidal ideation , there were no delusions reported but concerns for grandiose delusions noted, he denied auditory and visual. He denies any current thoughts of self-harm or harm to others. There was evidence of paranoia and distrust. Attention and concentration were intact and memory appeared mostly reliable but none were formally tested. He is alert and oriented x 3. Insight was impaired and judgment limited, impulse control is limited. Vitals/I&O/Wt Last Vital Signs Temp 99.1 F 10/12/23 16:00 Pulse 103 H 10/12/23 16:00 Resp 16 10/12/23 16:00 BP 122/75 10/12/23 16:00 Pulse Ox 96 10/12/23 16:00 O2 Del Method Room Air 10/12/23 16:00 Weight last 48 hrs Weight 76.204 kg Data NPU 10/03/23 19:42 10/03/23 19:42 A&P Assessment and plan (1) Acute psychosis: Plan This is a 18-year-old white male with no clear history of mental health treatment with possible history of ADHD and learning issues, with active addiction and concerns for psychosis possibly related to the cannabis use who presents with a unique perspective on life. 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 which may be delusional. He denies any mental health issues, although his behavior led to his admission to the hospital. 1. Continue Invega 6 mg p.o. daily. 2. Continue every 15 minute checks for safety. 3. Encourage individual, group and milieu therapies. 4. Obtain collateral information on what his baseline actually is. 5. Encourage sober living treatment after discharge at the highest level of care to which he is willing to commit. 6. Filed for 21-day hold. Hearing on Friday. 7. Tested for COVID and tested negative but will retest tomorrow if continues to have significant lethargy or any other symptoms. Involuntary Hold Information 2 96 Hour Hold: 96 Hour Involuntary Admission: Yes 96 Hour Hold Ending Date: 10/09/23 96 Hour Hold Ending Time: 19:46 Attestations NPU 2 Medical Necessity Statement*: Inpatient hospitalization is medically necessary and the clinically appropriate intervention at this time. We will monitor medication to make changes as indicated. His likely length of stay 5-7 days. Coding Level of Care Code Acute Code for [facility] Diagnoses Acute psychosis F23
[2023-10-12 20:00] VITALS: BP 114/75; PULSE 97; RESP 18; TEMP 36.6; O2SAT 99
[2023-10-12] MEDS: hyDROXYzine 25 mg Capsule 50 MG PO (21:35)
[2023-10-13] VITALS: BP 131/86; PULSE 106; RESP 18; TEMP 36.7; O2SAT 98
[2023-10-13 04:00] VITALS: BP 126/84; PULSE 110; RESP 18; TEMP 36.7; O2SAT 99
--- NOTE | 2023-10-13 06:12 | PC.NURSE ---
Shift note Patient had minimal sleep through the night. Came to the nurses station 2-3 times an hour with questions. Wanting staff to google information about video games. Asking what time the physician would be inmulltiple times. Asked if another patient could go to court with him to be his witness. States he needs to leave today to drive to [place] for a arlette competition. Stated his nose was not stuffy as long as he had his shoes on. Stated he was not crazy but the other patients here are. Told us he was assessing the patients for us. Would invite another patient to the day room to watch tv or play chess and shortly after he would come to the desk complaining the patient was crazy and bothering him. Was told he could easily keep distance from the patient yet he continued to invite or follow the other patient to the dayroom.
[2023-10-13 08:00] VITALS: BP 138/79; PULSE 114; RESP 17; TEMP 36.7; O2SAT 97
--- NOTE | 2023-10-13 08:36 | PC.NURSE ---
PT IS NOTED TO HAVE MAGICAL THINKING THAT HE CAN PLAY FORT NIGHT AND BE THE BEST PLAYER IN THE WORLD AND MAKE US ALL MONEY AND MAKE EVERYONE HAPPY. JUST WANT TO MAKE EVERYONE HAPPY. PT IS OBSERVED BEING VERY INTRUSIVE AND IMPULSIVE. PT COMES TO NURSES STATION ASKING THIS RN WHAT ARE YOU WRITING DOWN, DON'T DRUG ME, ARE YOU WRITTING DOWN THAT I'M NORMAL. ARE YOU GOING TO SAY THAT I'M OK? PT WAS INFORMED THAT THIS RN WILL WRITE DOWN OBSERVATIONS AND FACTS ONLY AND CAN NOT WRITE DOWN HIS BEHAVIOR IS NORMAL DUE TO PT OBSESSING OVER THE VIDEO GAME AND BELIEVING HE IS THE BEST IN THE WORLD AND WILL MAKE EVERYONE MONEY. PT STAID OH THANKS THAT'S GOOD. DENIES PAIN. DENIES SI/HI AND AVH AT THIS TIME. PT STATES HE DID NOT SLEEP LAST NIGHT AND STAFF REPORT THE SAME. RATES ANXIETY 4/10 AND DEPRESSION 0/10. WILL LET MED NURSE KNOW TO GIVE ANTI ANXIETY MEDICATIONS IF PT WILL TAKE. PT STATES HIS GOAL FOR THE DAY IS TO JUST MAKE EVERYONE HAPPY. ALL QUESTIONS ANSWERED AND SUPPORT WAS VOICED.
[2023-10-13] MEDS: paliperidone ER 6 mg Tablet PO (09:06)
[2023-10-13] MEDS: hyDROXYzine 25 mg Capsule 50 MG PO (09:07)
--- NOTE | 2023-10-13 10:01 | PC.NURSE ---
Patient constantly approaching nurses' station to thank staff for no apparent reason. He stated several times he was anxious about going to court today. When this RN inquired about why he was so anxious he stated he didn't want to go to long term. It was then explained to him that the court date today was not to send him to long term. Patient thanked staff for clarifying this for him and continued to come to the counter multiple times to thank staff for the same thing. Patient then came to the counter and stated, I'm sorry. I just wanted you guys to know it's an honor to spend time with my friends. Staff also had to ask him to not bother other patients while they were utilizing the phone.
[2023-10-13 12:00] VITALS: BP 133/83; PULSE 120; RESP 17; TEMP 36.9; O2SAT 96
--- NOTE | 2023-10-13 12:18 | PC.NURSE ---
PT CONTINUES TO APPROACH NURSES STATION HAVING VERY ANIMATED, RAPID SPEECH. STATES YOU ALL ARE THE [place] [employer] [place] WHEN I WHEN MY MILLION DOLLARS I AM GOING TO COME AND BE AN SANJAY TOO. PT WAS ASKED IF HE WANTED TO GO TO COURT TODAY PT STATES YES THEN CHANGES HIS MIND SEVERAL TIMES. PT APPEARS TO HAVE MANIC BEHAVIOR AND REQUIRES CONSTANT VERBAL REDIRECTION. SUPPORT VOICED.
--- NOTE | 2023-10-13 13:20 | PC.NURSE ---
PT WENT TO [address] VIA [facility].
--- NOTE | 2023-10-13 14:54 | PC.NURSE ---
BACK FROM [address] AT 1420. NO DISTRESS NOTED.
[2023-10-13 16:00] VITALS: BP 129/80; PULSE 120; RESP 17; TEMP 36.5; O2SAT 97
--- NOTE | 2023-10-13 16:09 | P.NPUPN_ITS ---
Subjective NPU 2 Subjective: Colt is a 18-year-old male who had been admitted with psychosis currently on a 21-day hold. The patient had admitted in the court hearing that he had been trying to fill his gun with bullets but stated that it was none of our business. He had reported that he felt that the staff were angels and that God had somehow influenced him and wanted him to help his brother's he had asked if the service writer of this note could bring his brother into the hospital to stay here as well. He had slept very few hours last night and acknowledged having insomnia. 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 Mental Status Exam 2 MSE Comments: This is a slender well-developed white male in hospital scrubs with limited grooming and eye contact. No abnormal movements except for mild psychomotor retardation. He was cooperative with exam in mild to moderate distress. Speech was mostly increased in pace and normal in volume. . Mood described as great. His affect was odd and subdued and mood incongruent. Thought process was linear and mostly organized. Thought content: Patient denied suicidal or homicidal ideation , there were no delusions reported but concerns for grandiose delusions noted, he denied auditory and visual. He denies any current thoughts of self-harm or harm to others. There was evidence of paranoia. Attention and concentration were intact and memory appeared mostly reliable but none were formally tested. He is alert and oriented x 3. Insight was impaired and judgment was limited, impulse control is limited. Vitals/I&O/Wt Last Vital Signs Temp 98.4 F 10/13/23 12:00 Pulse 120 H 10/13/23 12:00 Resp 17 10/13/23 12:00 BP 133/83 10/13/23 12:00 Pulse Ox 96 10/13/23 12:00 O2 Del Method Room Air 10/13/23 04:00 Weight last 48 hrs Weight 76.204 kg Data NPU 10/03/23 19:42 10/03/23 19:42 A&P Assessment and plan (1) Acute psychosis: Plan This is a 18-year-old white male with no clear history of mental health treatment with possible history of ADHD and learning issues, with active addiction and concerns for psychosis possibly related to the cannabis use who presents with a unique perspective on life. 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 which may be delusional. He denies any mental health issues, although his behavior led to his admission to the hospital. 1. Increase Invega to 9mg daily and add Klonopin 1mg at night to target suzan. 2. Continue every 15 minute checks for safety. 3. Encourage individual, group and milieu therapies. 4. Obtain collateral information on what his baseline actually is. 5. Encourage sober living treatment after discharge at the highest level of care to which he is willing to commit. 6. Patient placed on 21 day hold today. 7. Tested for COVID and tested negative but will retest tomorrow if continues to have significant lethargy or any other symptoms. Involuntary Hold Information 2 96 Hour Hold: 96 Hour Involuntary Admission: Yes 96 Hour Hold Ending Date: 10/09/23 96 Hour Hold Ending Time: 19:46 Attestations NPU 2 Medical Necessity Statement*: Inpatient hospitalization is medically necessary and the clinically appropriate intervention at this time. We will monitor medication to make changes as indicated. His likely length of stay 5-7 days. Coding Level of Care Code Acute Code for [facility] Fwd Diagnoses Acute psychosis F23
[2023-10-13] MEDS: OLANZapine 5 mg ODT PO (16:46)
--- NOTE | 2023-10-13 16:52 | PC.NURSE ---
PT CONTINUES TO HAVE DELUSIONS, MANIC BEHAVIOR, EXCESSIVE TALKING AND EUPHORIC THOUGHTS AND FEELINGS. PT HAS BEEN NOTED TO BE INTRUSIVE AT THE NURSES STATIONS MAKING STATEMENTS THANK YOU FOR FIGHTING FOR OUR NATIONS SUCESS. YOU ARE THE BEST SANJAY EVER, I WANT TO LEARN FOR THE BEST. PT WAS ENCOURAGED TO GO TO ROOM AND REST. PT ATTEMPTED TO LAY DOWN FOR 20 MINUTES BUT STATES I CAN'T STOP MY MIND. PT WAS GIVEN ZYDIS 5 MG ORDERED FOR INCREASED ANXIETY. PT WAS EDUCATED ON NEED FOR MEDICATION AND PT STATES I WILL TAKE WHATEVER YOU WANT ME TO. PT WAS MADE A HOT CUP OF TEA AND ENCOURAGED TO GO TO BED TO REST. PT STATES HE WILL TRY. SUPPORT VOICED.
[2023-10-13 20:00] VITALS: BP 142/78; PULSE 124; RESP 18; TEMP 36.7; O2SAT 99
[2023-10-13] MEDS: CLONazepam 1 mg Tablet PO (20:48)
[2023-10-14] VITALS: BP 116/82; PULSE 99; RESP 18; TEMP 36.4; O2SAT 98
[2023-10-14 04:00] VITALS: BP 116/80; PULSE 97; RESP 16; TEMP 36.9; O2SAT 99
[2023-10-14] MEDS: paliperidone ER 9 mg Tablet PO (08:38)
[2023-10-14 08:47] VITALS: BP 116/70; PULSE 100; RESP 17; O2SAT 98
[2023-10-14 12:00] VITALS: BP 104/68; PULSE 99; RESP 17; TEMP 36.8; O2SAT 98
[2023-10-14 15:40] LABS: Adenovirus Not Detected (NOT DETECT); Chlamydia Pneumoniae Not Detected (NOT DETECT); Coronavirus 229E,HKU1,NL63,OC4 Not Detected (NOT DETECT); Human Metapneumovirus Not Detected (NOT DETECT); Human Rhinovirus/Enterovirus Not Detected (NOT DETECT); Influenza A Not Detected (NOT DETECT); Influenza A H1 Not Detected (NOT DETECT); Influenza A H1-2009 Not Detected (NOT DETECT); Influenza A H3 Not Detected (NOT DETECT); Influenza B Not Detected (NOT DETECT); Mycoplasma Pneumoniae Not Detected (NOT DETECT); Parainfluenza Virus Type 1 Not Detected (NOT DETECT); Parainfluenza Virus Type 2 Not Detected (NOT DETECT); Parainfluenza Virus Type 3 Not Detected (NOT DETECT); Parainfluenza Virus Type 4 Not Detected (NOT DETECT); Respiratory Syncytial Virus A Not Detected (NOT DETECT); Respiratory Syncytial Virus B Not Detected (NOT DETECT)
[2023-10-14 15:55] LABS: SARS-COV-2 Detected (NOT DETECT)
--- NOTE | 2023-10-14 15:55 | PC.NURSE ---
KINSEY FROM LAB CALLED THIS NURSE WITH CRITICAL LAB RESULT. THIS PT IS COVID POSITIVE. PHYSICIAN NOTIFIED. NO NEW ORDERS AT THIS TIME.
[2023-10-14 16:00] VITALS: BP 109/71; PULSE 112; RESP 18; TEMP 36.6; O2SAT 98
--- NOTE | 2023-10-14 17:17 | W.PM.NPUPNS ---
Subjective NPU Subjective: Colt is a 18-year-old male who had been admitted with psychosis and suzan currently on a 21-day hold. The patient had improved sleep last night. He continued to report that he was planning on going home and beginning his quest to when a significant amount of money playing fortnight. He had continued to address with the underwriter solicitation director of this note his concerns about his family and remained somewhat guarded in regards to discussing the issues surrounding his hospitalization as he minimized the details regarding the patient attempting to load his gun with bullets just prior to the police arriving in the home. Mental Status Exam MSE Comments: This is a slender well-developed white male in hospital scrubs with limited grooming and eye contact. No abnormal movements except for mild psychomotor retardation. He was cooperative with exam in mild to moderate distress. Speech was slower in pace, and normal in volume. Mood described as great. His affect was expansive. Thought process was circumstantial. Thought content: Patient denied suicidal or homicidal ideation , Continued grandiosity and overvalued ideas were present. he denied auditory or visual hallucinations. He denies any current thoughts of self-harm or harm to others. There was evidence of paranoia. Attention and concentration were intact and memory appeared mostly reliable but none were formally tested. He is alert and oriented x 3. Insight was impaired and judgment was limited, impulse control is limited. Vitals/I&O/Wt Last Vital Signs Temp 98.3 F 10/14/23 12:00 Pulse 99 10/14/23 12:00 Resp 17 10/14/23 12:00 BP 104/68 10/14/23 12:00 Pulse Ox 98 10/14/23 12:00 O2 Del Method Room Air 10/14/23 08:47 Data NPU 10/03/23 19:42 10/03/23 19:42 A&P Assessment and plan (1) Acute psychosis: Plan This is a 18-year-old white male with no clear history of mental health treatment with possible history of ADHD and learning issues, with active addiction and concerns for psychosis possibly related to the cannabis use who presents with a unique perspective on life. 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 which may be delusional. He denies any mental health issues, although his behavior led to his admission to the hospital. 1. Continuee Invega at 9mg with medication moved to nightime and continue Klonopin 1mg at night to target suzan. 2. Continue every 15 minute checks for safety. 3. Encourage individual, group and milieu therapies. 4. Obtain collateral information on what his baseline actually is. 5. Encourage sober living treatment after discharge at the highest level of care to which he is willing to commit. 6. Patient placed on 21 day hold today. 7. Patient positive for COVID 19 today. Involuntary Hold Information 96 Hour Hold: 96 Hour Involuntary Admission: Yes 96 Hour Hold Ending Date: 10/09/23 96 Hour Hold Ending Time: 19:46 Attestations NPU Medical Necessity Statement*: Inpatient hospitalization is medically necessary and the clinically appropriate intervention at this time. We will monitor medication to make changes as indicated. His likely length of stay 5-7 days. Coding Level of Care Code Acute Code for [facility] Fwd Diagnoses Acute psychosis F23
[2023-10-14 19:24] VITALS: BP 116/78; PULSE 115; RESP 18; TEMP 36.8; O2SAT 98
[2023-10-14] MEDS: CLONazepam 1 mg Tablet PO (20:13)
[2023-10-15] VITALS: BP 112/58; PULSE 114; RESP 18; TEMP 36.6; O2SAT 95
[2023-10-15 04:00] VITALS: BP 121/83; PULSE 109; RESP 18; TEMP 36.4; O2SAT 98
[2023-10-15 08:00] VITALS: BP 118/72; PULSE 123; RESP 18; TEMP 36.6
[2023-10-15 12:00] VITALS: BP 115/80; PULSE 120; RESP 18; TEMP 36.6; O2SAT 99
--- NOTE | 2023-10-15 13:15 | P.NPUPN_ITS ---
Subjective NPU 2 Subjective: Colt is a 18-year-old male who had been admitted with psychosis and suzan currently on a 21-day hold. The patient had reported feeling excessively tired. He continued to express grandiose ideas of having infant at abilities at mastering fortnight and plan to make millions of dollars through videogame playing. He had expressed some disappointment that his family members had not come to visit him yet. He had reported that he had needed help and continue to report that others were trying to prevent him from making money. He had expressed having no thoughts of hurting anyone but reported that he had loaded a gun with 2 bullets in order to protect himself. He had reported that he was entitled to do this but stated that he understood how the police may have been alarmed by his behavior just prior to coming into the hospital. Mental Status Exam 2 MSE Comments: This is a slender well-developed white male in hospital scrubs with limited grooming and eye contact who appeared sedated today in bed. No abnormal movements except for mild psychomotor retardation. He was cooperative with exam in mild to moderate distress. Speech was slower in pace, and normal in volume. Mood described as great. His affect was euthymic but less expansive. Thought process was more linear today. Thought content: Patient denied suicidal or homicidal ideation , There was continued evidence of grandiosity and ideas of reference. He denied auditory or visual hallucinations. He denies any current thoughts of self-harm or harm to others. There was continued evidence of paranoia. Attention and concentration were intact and memory appeared mostly reliable but none were formally tested. He is alert and oriented x 3. Insight was impaired and judgment was limited, impulse control is limited. Vitals/I&O/Wt Last Vital Signs Temp 97.9 F 10/15/23 12:00 Pulse 120 H 10/15/23 12:00 Resp 18 10/15/23 12:00 BP 115/80 10/15/23 12:00 Pulse Ox 99 10/15/23 12:00 O2 Del Method Room Air 10/15/23 12:00 Data NPU 10/03/23 19:42 10/03/23 19:42 A&P Assessment and plan (1) Acute psychosis: Plan This is a 18-year-old white male with no clear history of mental health treatment with possible history of ADHD and learning issues, with active addiction and concerns for psychosis possibly related to the cannabis use who presents with a unique perspective on life. 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 which may be delusional. He denies any mental health issues, although his behavior led to his admission to the hospital. 1. Patient improving but appearing more sedated today, will reduce invega to 6mg at night and klonopin reduction to .75mg at night tonight. 2. Continue every 15 minute checks for safety. 3. Encourage individual, group and milieu therapies. 4. Obtain collateral information on what his baseline actually is. 5. Encourage sober living treatment after discharge at the highest level of care to which he is willing to commit. 6. Patient placed on 21 day hold today. 7. Patient positive for COVID 19 today. Continue supportive therapy. Involuntary Hold Information 2 96 Hour Hold: 96 Hour Involuntary Admission: Yes 96 Hour Hold Ending Date: 10/09/23 96 Hour Hold Ending Time: 19:46 Attestations NPU 2 Medical Necessity Statement*: Inpatient hospitalization is medically necessary and the clinically appropriate intervention at this time. We will monitor medication to make changes as indicated. His likely length of stay 5-7 days. Coding Level of Care Code Acute Code for [facility] Fwd Diagnoses Acute psychosis F23
[2023-10-15] MEDS: ascorbic acid 500 mg Tablet PO (15:13)
[2023-10-15 16:00] VITALS: BP 119/74; PULSE 118; RESP 18; TEMP 36.8; O2SAT 97
[2023-10-15 20:00] VITALS: BP 124/71; PULSE 110; RESP 18; TEMP 36.8; O2SAT 98
[2023-10-15] MEDS: guaiFENesin 600 mg Tablet PO (20:11)
[2023-10-15] MEDS: paliperidone ER 6 mg Tablet PO (20:11)
[2023-10-15] MEDS: CLONazepam 0.5 mg Tablet 0.75 MG PO (20:12)
[2023-10-16 04:00] VITALS: BP 111/62; PULSE 97; RESP 18; TEMP 36.7; O2SAT 98
[2023-10-16 08:00] VITALS: BP 125/77; PULSE 101; RESP 17; TEMP 36.4; O2SAT 99
[2023-10-16] MEDS: guaiFENesin 600 mg Tablet PO ×2 (08:27→20:39)
[2023-10-16] MEDS: ascorbic acid 500 mg Tablet PO (08:27)
[2023-10-16] MEDS: OLANZapine 5 mg ODT PO (08:27)
--- NOTE | 2023-10-16 08:55 | PC.NURSE ---
UP IN [place]. PT STATES HE SLEPT WELL LAST NIGHT AND FEELS THE CLONZEPAM AT HS IS WORKING. PT DENIES PAIN, DOES REPORT FEELING STUFFY FROM THE COVID BUT THAT'S IT. PT DENIES SI/HI AND AVH AT THIS TIME. PT CONTINUES TO BE INTRUSIVE WITH STAFF AND WILL STAY AT THE NURSES STATION TALKING ABOUT FORT NIGHT. PT STATES HIS GOAL FOR THE DAY IS TO MAKE EVERYONE HAPPY HAPPY AND WIN FORT NIGHT. PT CONTINUES TO HAVE DELUSIONS ABOUT PLAYING FORT NIGHT AND WINNING A MILLION DOLLARS. RATES ANXIETY AND DEPRESSION 0/10. PT IS OBSERVED TO HAVE ANXIETY AT TIMES IF STAFF IS NOT IMMEDIATELY RESPONSIVE TO HIS FORT NIGHT STATEMENTS. PT WAS GIVEN ZYDIS 5 MG ORDERED FOR ANXIETY. ALL QUESTIONS ANSWERED AND SUPPORT WAS VOICED.
[2023-10-16] MEDS: nicotine 4 mg lozenge MUCOUS MEM (09:32)
[2023-10-16 11:49] VITALS: BP 119/77; PULSE 107; RESP 17; TEMP 36.8; O2SAT 98
[2023-10-16 15:47] VITALS: BP 124/79; PULSE 112; RESP 16; TEMP 36.8; O2SAT 98
--- NOTE | 2023-10-16 16:28 | W.PM.NPUPNS ---
Subjective NPU Subjective: Colt is a 18-year-old male who had been admitted with psychosis and suzan currently on a 21-day hold. Patient continued to express his annoyance that being here in the hospital. He had stated that he did not wish to sign up for Medicaid as he stated that it was a waste of tax payers money. 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 The patient had become more irritable and agitated later last night after he had perseverated about wanting to leave here. He had continued to express disappointment that he had not spoken with his family but showed evidence of not wanting to speak with any family members. He had continued to remain guarded when speaking about why he had felt the need to have a loaded gun in the home and while he was loading bullets in the gun just prior to the police arriving. Patient had expressed that he would not likely take medications when he left here. Mental Status Exam MSE Comments: This is a slender well-developed white male in hospital scrubs with limited grooming and eye contact who appeared sedated today in bed. No abnormal movements except for mild psychomotor retardation. He was cooperative with exam in moderate distress today. Speech was slower in pace, and normal in volume. Mood described as fine. His affect was intense and simmering. Thought process was more linear today. Thought content: Patient denied suicidal or homicidal ideation , There was continued evidence of grandiosity and ideas of reference. He denied auditory or visual hallucinations. He denies any current thoughts of self-harm or harm to others. There was continued evidence of paranoia and distrust to others. Attention and concentration were intact and memory appeared mostly reliable but none were formally tested. He is alert and oriented x 3. Insight was impaired and judgment was limited, impulse control is limited. Vitals/I&O/Wt Last Vital Signs Temp 98.2 F 10/16/23 15:47 Pulse 112 H 10/16/23 15:47 Resp 16 10/16/23 15:47 BP 124/79 10/16/23 15:47 Pulse Ox 98 10/16/23 15:47 O2 Del Method Room Air 10/16/23 15:47 10/16/23 10/16/23 10/16/23 06:59 14:59 22:59 Intake Total 480 / 480 Balance 480 / 480 Data NPU 10/03/23 19:42 10/03/23 19:42 A&P Assessment and plan (1) Acute psychosis: Plan This is a 18-year-old white male with no clear history of mental health treatment with possible history of ADHD and learning issues, with active addiction and concerns for psychosis possibly related to the cannabis use who presents with a unique perspective on life. 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 which may be delusional. He denies any mental health issues, although his behavior led to his admission to the hospital. 1. Patient improving but appearing more sedated today, continue invega 6mg at night and klonopin .75mg at night. 2. Continue every 15 minute checks for safety. 3. Encourage individual, group and milieu therapies. 4. Obtain collateral information on what his baseline actually is. 5. Encourage sober living treatment after discharge at the highest level of care to which he is willing to commit. 6. Patient placed on 21 day hold today. 7. Patient positive for COVID 19 today. Continue supportive therapy. Involuntary Hold Information 96 Hour Hold: 96 Hour Involuntary Admission: Yes 96 Hour Hold Ending Date: 10/09/23 96 Hour Hold Ending Time: 19:46 Attestations NPU Medical Necessity Statement*: Inpatient hospitalization is medically necessary and the clinically appropriate intervention at this time. We will monitor medication to make changes as indicated. His likely length of stay 5-7 days. Coding Level of Care Code Acute Code for [facility] Fwd Diagnoses Acute psychosis F23
[2023-10-16 20:00] VITALS: BP 107/67; PULSE 108; RESP 18; TEMP 36.2; O2SAT 98
[2023-10-16] MEDS: paliperidone ER 6 mg Tablet PO (20:23)
[2023-10-16] MEDS: CLONazepam 0.5 mg Tablet 0.75 MG PO (20:23)
[2023-10-17] VITALS: BP 136/81; PULSE 98; RESP 16; TEMP 36.6; O2SAT 99
[2023-10-17 04:00] VITALS: BP 110/72; PULSE 96; RESP 18; TEMP 36.8; O2SAT 99
[2023-10-17 08:00] VITALS: BP 105/69; PULSE 90; RESP 16; TEMP 36.6; O2SAT 98
--- NOTE | 2023-10-17 08:26 | PC.NURSE ---
UP AT NURSES STATION, PT CONTINUES TO BE INTRUSIVE WITH STAFF AND MAKING STATEMENTS ABOUT WINNING FORT NIGHT, I'M THE BEST PLAYER EVER, I REALLY AM SANJAY, YOU'RE MY SANJAY. PT HAS BEEN VERBALLY REDIRECTED MULTIPLE TIMES THIS MORNING DUE TO ATTEMPTED TO WAKE UP OTHER PATIENTS. DENIES PAIN. DENIES SI/HI AND AVH AT THIS TIME. PT CONTINUES TO BE HEARD EXPRESSING DELUSIONS AND GRANDIOSE BEHAVIORS. RATES ANXIETY AND DEPRESSION 0/10. PT IS NOTED TO BE ANXIOUS AT TIMES WHEN CONFRONTED WITH HIS BEHAVIORS BY OTHER PT TO STOP WAKING HIM UP. PT WAS INSTRUCTED TO STOP WAKING UP PTS THAT THE STAFF WOULD DO THAT. PT VERBALIZED UNDERSTANDING. PT GOAL FOR THE DAY IS TO MAKE EVERYONE HAPPY AND WIN FORT NIGHT. ALL QUESTIONS ANSWERED AND SUPPORT VOICED. RN TO ADMINISTER ZYDIS 5 MG FOR OBSERVED INCREASED ANXIETY.
[2023-10-17] MEDS: guaiFENesin 600 mg Tablet PO ×2 (08:27→20:33)
[2023-10-17] MEDS: OLANZapine 5 mg ODT PO (08:27)
[2023-10-17] MEDS: ascorbic acid 500 mg Tablet PO (08:27)
[2023-10-17 11:37] VITALS: BP 117/72; PULSE 103; RESP 16; TEMP 36.8; O2SAT 99
[2023-10-17 15:45] VITALS: BP 128/82; PULSE 113; RESP 16; TEMP 36.8; O2SAT 99
--- NOTE | 2023-10-17 17:26 | W.PM.NPUPNS ---
Subjective NPU Subjective: Colt is a 18-year-old male who had been admitted with psychosis and suzan currently on a 21-day hold. Patient continued to state that he felt ready to return home. He reported no side effects from his medication regiment other than dry mouth. He had been more polite and cooperative on the milieu. 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 The patient had improved sleep noted. He reported that his energy was better. He continued to appear somewhat guarded when discussing his actions leading to his hospitalization stating that his family had nothing to worry about. Mental Status Exam MSE Comments: This is a slender well-developed white male in hospital scrubs with limited grooming and eye contact who appeared sedated today in bed. No abnormal movements except for mild psychomotor retardation. He was cooperative with exam in moderate distress today. Speech was slower in pace, and normal in volume. Mood described as fine. His affect was more subdued today. Thought process was more linear today. Thought content: Patient denied suicidal or homicidal ideation , There was mild grandiosity. He denied auditory or visual hallucinations. He denies any current thoughts of self-harm or harm to others. There was continued evidence of paranoia and distrust to others. Attention and concentration were intact and memory appeared mostly reliable but none were formally tested. He is alert and oriented x 3. Insight was impaired and judgment was limited, impulse control is limited. Vitals/I&O/Wt Last Vital Signs Temp 98.2 F 10/17/23 15:45 Pulse 113 H 10/17/23 15:45 Resp 16 10/17/23 15:45 BP 128/82 10/17/23 15:45 Pulse Ox 99 10/17/23 15:45 O2 Del Method Room Air 10/17/23 15:45 Data NPU 10/03/23 19:42 10/03/23 19:42 A&P Assessment and plan (1) Acute psychosis: Plan This is a 18-year-old white male with no clear history of mental health treatment with possible history of ADHD and learning issues, with active addiction and concerns for psychosis possibly related to the cannabis use who presents with a unique perspective on life. 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 which may be delusional. He denies any mental health issues, although his behavior led to his admission to the hospital. 1. Patient improving but appearing more sedated today, continue invega 6mg at night and klonopin .75mg at night. 2. Continue every 15 minute checks for safety. 3. Encourage individual, group and milieu therapies. 4. Obtain collateral information on what his baseline actually is. 5. Encourage sober living treatment after discharge at the highest level of care to which he is willing to commit. 6. Patient placed on 21 day hold today. 7. Patient positive for COVID 19 today. Continue supportive therapy. Involuntary Hold Information 96 Hour Hold: 96 Hour Involuntary Admission: Yes 96 Hour Hold Ending Date: 10/09/23 96 Hour Hold Ending Time: 19:46 Attestations NPU Medical Necessity Statement*: Inpatient hospitalization is medically necessary and the clinically appropriate intervention at this time. We will monitor medication to make changes as indicated. His likely length of stay 5-7 days. Coding Level of Care Code Acute Code for [facility] Fwd Diagnoses Acute psychosis F23
[2023-10-17] MEDS: nicotine 2 mg Gum BUCCAL (18:32)
[2023-10-17 20:00] VITALS: BP 110/76; PULSE 102; RESP 18; TEMP 36.5; O2SAT 97
[2023-10-17] MEDS: trazodone 50 mg Tablet PO (20:32)
[2023-10-17] MEDS: CLONazepam 0.5 mg Tablet 0.75 MG PO (20:32)
[2023-10-17] MEDS: paliperidone ER 6 mg Tablet PO (20:33)
[2023-10-18] VITALS: BP 106/69; PULSE 111; RESP 16; TEMP 36.6; O2SAT 98
[2023-10-18 04:00] VITALS: BP 107/68; PULSE 88; RESP 16; TEMP 36.5; O2SAT 99
[2023-10-18 08:00] VITALS: BP 112/70; PULSE 95; RESP 18; TEMP 36.5; O2SAT 99
[2023-10-18] MEDS: ascorbic acid 500 mg Tablet PO (08:44)
--- NOTE | 2023-10-18 09:53 | PC.NURSE ---
During morning shift assessment, patient denies SI, HI, AVH, depression, and anxiety. Patient denies pain, discomfort. Patient did not have any questions.
[2023-10-18 12:00] VITALS: BP 104/61; PULSE 120; RESP 18; TEMP 36.9; O2SAT 96
--- NOTE | 2023-10-18 13:47 | P.NPUPN_ITS ---
Subjective NPU 2 Subjective: Colt is a 18-year-old male who had been admitted with psychosis and suzan currently on a 21-day hold. The patient had been sleeping better. 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 He reported that he was feeling better and stated that he was not having thoughts of hurting himself or others. 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 Mental Status Exam 2 MSE Comments: This is a slender well-developed white male in hospital scrubs with limited grooming and eye contact who appeared less sedated today. No abnormal involuntary motor movements except for mild psychomotor retardation. He was pleasant and cooperative with exam in moderate distress today. Speech was slower in pace, and normal in volume. Mood described as better. His affect was more subdued today. Thought process was more linear today. Thought content: Patient denied suicidal or homicidal ideation. There was continued grandiosity and overvalued ideas but no overt delusions. He denied auditory or visual hallucinations. He denies any current thoughts of self-harm or harm to others. Attention and concentration were intact and memory appeared mostly reliable but none were formally tested. He is alert and oriented x 3. Insight was impaired and judgment was limited, impulse control is limited. He continued to endorse that he was meant to win millions of dollars on . Vitals/I&O/Wt Last Vital Signs Temp 97.7 F 10/18/23 08:00 Pulse 95 10/18/23 08:00 Resp 18 10/18/23 08:00 BP 112/70 10/18/23 08:00 Pulse Ox 99 10/18/23 08:00 O2 Del Method Room Air 10/18/23 08:00 Data NPU 10/03/23 19:42 10/03/23 19:42 A&P Assessment and plan (1) Acute psychosis: Plan This is a 18-year-old white male with no clear history of mental health treatment with possible history of ADHD and learning issues, with active addiction and concerns for psychosis possibly related to the cannabis use who presents with a unique perspective on life. 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 which may be delusional. He denies any mental health issues, although his behavior led to his admission to the hospital. 1. Patient improving and appeared less sedated today, continue invega 6mg at night and klonopin . 75mg at night. 2. Continue every 15 minute checks for safety. 3. Encourage individual, group and milieu therapies. 4. Obtain collateral information on what his baseline actually is. 5. Encourage sober living treatment after discharge at the highest level of care to which he is willing to commit. 6. Patient placed on 21 day hold today. 7. Patient positive for COVID 19 today. Continue supportive therapy. Involuntary Hold Information 2 96 Hour Hold: 96 Hour Involuntary Admission: Yes 96 Hour Hold Ending Date: 10/09/23 96 Hour Hold Ending Time: 19:46 Attestations NPU 2 Medical Necessity Statement*: Inpatient hospitalization is medically necessary and the clinically appropriate intervention at this time. We will monitor medication to make changes as indicated. His likely length of stay 3-5 days. Coding Level of Care Code Acute Code for [facility] Fwd Diagnoses Acute psychosis F23
[2023-10-18 16:00] VITALS: BP 111/65; PULSE 110; RESP 16; TEMP 36.7; O2SAT 97
[2023-10-18 20:00] VITALS: BP 114/74; PULSE 100; RESP 18; TEMP 37.7; O2SAT 96
[2023-10-18] MEDS: paliperidone ER 6 mg Tablet PO (20:56)
[2023-10-18] MEDS: CLONazepam 0.5 mg Tablet 0.75 MG PO (20:56)
[2023-10-18] MEDS: guaiFENesin 600 mg Tablet PO (21:06)
[2023-10-19] VITALS: BP 120/80; PULSE 104; RESP 17; TEMP 36.4; O2SAT 98
[2023-10-19 04:00] VITALS: BP 116/76; PULSE 98; RESP 17; TEMP 36.4; O2SAT 97
[2023-10-19 08:00] VITALS: BP 105/62; PULSE 104; RESP 16; TEMP 36.6; O2SAT 99
[2023-10-19] MEDS: ascorbic acid 500 mg Tablet PO (09:14)
[2023-10-19 12:00] VITALS: BP 114/66; PULSE 92; RESP 15; TEMP 36.6; O2SAT 98
[2023-10-19 16:00] VITALS: BP 123/83; PULSE 108; RESP 18; TEMP 37.1; O2SAT 98
--- NOTE | 2023-10-19 16:36 | P.NPUPN_ITS ---
Subjective NPU 2 Subjective: Colt is a 18-year-old male who had been admitted with psychosis and suzan currently on a 21-day hold. Patient had no difficulties with falling asleep. He had reported that he was feeling bored here. 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 He was polite and reported that he had spoken with his family. He had said that his family was looking forward to him coming home soon. He appeared less perseverative regarding his need to leave here immediately. Mental Status Exam 2 MSE Comments: This is a slender well-developed white male in hospital scrubs with limited grooming and eye contact who appeared less sedated today. No abnormal involuntary motor movements except for mild psychomotor retardation. He was pleasant and cooperative with exam in mild distress today. Speech was slower in rate, and normal in volume. Mood described as okay, i think i am better. His affect remained odd and subdued today. Thought process was more linear today. Thought content: Patient denied suicidal or homicidal ideation. There was mild grandiosity noted and overvalued ideas but no overt delusions. He denied auditory or visual hallucinations. He denies any current thoughts of self-harm or harm to others. Attention and concentration were intact and memory appeared mostly reliable but none were formally tested. He is alert and oriented x 3. Insight was impaired and judgment was limited, impulse control is limited. Vitals/I&O/Wt Last Vital Signs Temp 98 F 10/19/23 12:00 Pulse 92 10/19/23 12:00 Resp 15 10/19/23 12:00 BP 114/66 10/19/23 12:00 Pulse Ox 98 10/19/23 12:00 O2 Del Method Room Air 10/19/23 12:00 10/19/23 10/19/23 10/19/23 06:59 14:59 22:59 Intake Total 960 / 960 Balance 960 / 960 Data NPU 10/03/23 19:42 10/03/23 19:42 A&P Assessment and plan (1) Acute psychosis: Plan This is a 18-year-old white male with no clear history of mental health treatment with possible history of ADHD and learning issues, with active addiction and concerns for psychosis possibly related to the cannabis use who presents with a unique perspective on life. 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 which may be delusional. He denies any mental health issues, although his behavior led to his admission to the hospital. 1. Patient improving and appeared less sedated today, continue invega 6mg at night and reduce klonopin .50mg at night. Patient appears to be less manic. 2. Continue every 15 minute checks for safety. 3. Encourage individual, group and milieu therapies. 4. Obtain collateral information on what his baseline actually is. 5. Encourage sober living treatment after discharge at the highest level of care to which he is willing to commit. 6. Patient placed on 21 day hold today. 7. Patient positive for COVID 19 today. Continue supportive therapy. Involuntary Hold Information 2 96 Hour Hold: 96 Hour Involuntary Admission: Yes 96 Hour Hold Ending Date: 10/09/23 96 Hour Hold Ending Time: 19:46 Attestations NPU 2 Medical Necessity Statement*: Inpatient hospitalization is medically necessary and the clinically appropriate intervention at this time. We will monitor medication to make changes as indicated. His likely length of stay 3-5 days. Coding Level of Care Code Acute Code for [facility] Fwd Diagnoses Acute psychosis F23
[2023-10-19 20:00] VITALS: BP 116/70; PULSE 105; RESP 18; TEMP 36.6; O2SAT 99
[2023-10-19] MEDS: guaiFENesin 600 mg Tablet PO (20:16)
[2023-10-19] MEDS: paliperidone ER 6 mg Tablet PO (20:17)
[2023-10-19] MEDS: trazodone 50 mg Tablet PO ×2 (20:17→23:53)
[2023-10-19] MEDS: CLONazepam 0.5 mg Tablet PO (20:17)
[2023-10-19] MEDS: hyDROXYzine 25 mg Capsule 50 MG PO (21:48)
[2023-10-19] MEDS: OLANZapine 5 mg ODT PO (23:54)
[2023-10-20] VITALS: BP 126/74; PULSE 92; RESP 18; TEMP 36.4; O2SAT 98
[2023-10-20 04:00] VITALS: BP 112/59; PULSE 100; RESP 17; TEMP 36.4; O2SAT 99
[2023-10-20 08:00] VITALS: BP 124/70; PULSE 88; RESP 18; TEMP 36.6; O2SAT 98
--- NOTE | 2023-10-20 08:50 | PC.NURSE ---
SITTING ON BED PT IS HEARD MAKING STATEMENTS THAT NO ONE WILL UPDATE ME ON ANYTHING AND I'M ONLY 10% BETTER WHICH I THINK I'M 200 FOLD AND TURNED AROUND BUT THE NURSE YESTERDAY SAID I CAN'T LEAVE BECAUSE I NEED TO BE 90% BETTER NOT 10%. PT WAS ASSURED THAT IT WILL BE UP TO THE DR WHEN PT IS DISCHARGED AND THIS RN WOULD SPEAK TO DR. ROSA AND GET AN UPDATE FOR HIM SOON HE GETS HERE. PT THANKS THIS RN EXCESSIVELY. DENIES PAIN. DENIES SI/HI AND AVH AT THIS TIME. 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 PT WAS EDUCATED THAT HE IS ON A 21 DAY HOLD BUT THIS RN HAS NOTHING TO DO WITH THE BILLING. RATES ANXIETY 0/10 BUT STATES IT WILL BE GOING UP THE LONGER I AM HERE WITHOUT AN UPDATE. RATES DEPRESSION 5/10 JUST BECAUSE I'M HERE. STATES HE SLEPT GOOD. STAFF REPORT THAT PT DID SLEEP BUT HAD ALOT OF DIFFICULTY GETTING TO SLEEP AND REQUIRED MULTIPLE PRN'S TO GET TO SLEEP AT 1230 AM LAST SHIFT. PT STATES GOAL FOR TODAY IS TO GET AN UPDATE. ALL QUESTIONS ANSWERED AND SUPPORT WAS VOICED.
[2023-10-20] MEDS: haloperidol 5 mg Tablet PO (10:38)
[2023-10-20] MEDS: guaiFENesin 600 mg Tablet PO ×2 (10:38→20:35)
[2023-10-20] MEDS: ascorbic acid 500 mg Tablet PO (10:38)
[2023-10-20 11:33] VITALS: BP 119/68; PULSE 108; RESP 18; TEMP 36.8; O2SAT 98
[2023-10-20 16:00] VITALS: BP 104/70; PULSE 106; RESP 18; TEMP 36.7; O2SAT 98
--- NOTE | 2023-10-20 18:17 | W.PM.NPUPNS ---
Subjective NPU Subjective: Colt is a 18-year-old male who had been admitted with psychosis and suzan currently on a 21-day hold. He had some difficulties falling asleep last night with the reduction in Klonopin. He had reported that he was feeling anxious about knowing when he may go home. He had reported feeling better. 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 He had stated that he had been speaking to his family on the phone. He had been calm and redirectable on the unit. He had been encouraged to stay awake during the afternoon and had stated that the additional medicines had eventually helped to manage his insomnia. Mental Status Exam MSE Comments: This is a slender well-developed white male in hospital scrubs with limited grooming and eye contact who appeared more tired today. No abnormal involuntary motor movements except for mild psychomotor retardation. He was pleasant and cooperative with exam in mild distress today. Speech was slower in rate, and normal in volume and prosody. Mood described as good. His affect appeared more restricted today. Thought process was more linear today. Thought content: Patient denied suicidal or homicidal ideation. Less presence of overvalued ideas. He denied auditory or visual hallucinations. He denies any current thoughts of self-harm or harm to others. Attention and concentration were intact and memory appeared mostly reliable but none were formally tested. He is alert and oriented x 3. Insight was impaired and judgment was limited, impulse control is improving. Vitals/I&O/Wt Last Vital Signs Temp 98.1 F 10/20/23 16:00 Pulse 106 H 10/20/23 16:00 Resp 18 10/20/23 16:00 BP 104/70 10/20/23 16:00 Pulse Ox 98 10/20/23 16:00 O2 Del Method Room Air 10/20/23 04:00 Data NPU 10/03/23 19:42 10/03/23 19:42 A&P Assessment and plan (1) Acute psychosis: Plan This is a 18-year-old white male with no clear history of mental health treatment with possible history of ADHD and learning issues, with active addiction and concerns for psychosis possibly related to the cannabis use who presents with a unique perspective on life. 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 which may be delusional. He denies any mental health issues, although his behavior led to his admission to the hospital. 1. Patient improving and appeared less sedated today, continue invega 6mg at night and continue klonopin .50mg at night. Patient appears to be less manic. Consider zyprexa at night prn for insomnia. 2. Continue every 15 minute checks for safety. 3. Encourage individual, group and milieu therapies. 4. Obtain collateral information on what his baseline actually is. 5. Encourage sober living treatment after discharge at the highest level of care to which he is willing to commit. 6. Patient placed on 21 day hold today. 7. Patient positive for COVID 19 today. Continue supportive therapy. Involuntary Hold Information 96 Hour Hold: 96 Hour Involuntary Admission: Yes 96 Hour Hold Ending Date: 10/09/23 96 Hour Hold Ending Time: 19:46 Attestations NPU Medical Necessity Statement*: Inpatient hospitalization is medically necessary and the clinically appropriate intervention at this time. We will monitor medication to make changes as indicated. His likely length of stay 3-5 days. Coding Level of Care Code Acute Code for [facility] Fwd Diagnoses Acute psychosis F23
[2023-10-20 19:19] VITALS: BP 141/69; PULSE 110; RESP 18; TEMP 36.8; O2SAT 96
[2023-10-20] MEDS: trazodone 50 mg Tablet PO (20:33)
[2023-10-20] MEDS: hyDROXYzine 25 mg Capsule 50 MG PO (20:34)
[2023-10-20] MEDS: paliperidone ER 6 mg Tablet PO (20:35)
[2023-10-20] MEDS: CLONazepam 0.5 mg Tablet PO (20:35)
[2023-10-21] VITALS (7 sets, daily range): BP systolic 90–115; BP diastolic 53–73; PULSE 87–112; RESP 16–18; TEMP 36.5–37.4; O2SAT 98
--- NOTE | 2023-10-21 08:51 | PC.NURSE ---
Patient very manic this morning. He stated that everyone was worried about their underwear on the unit. When asked what he meant he said that he was worried what would happen to them if they got caught on the chair because it could be very detrimental. This RN asked if he had thrown his underwear in with the laundry and he replied, I know I'm not getting them back. I don't have them on. I'm disarmed. The entire time this RN and the patient were having a conversation he was pacing, erasing things off of the chalkboard, and drawing. At one point he pointed to a drawing on the board another patient had made and said it was radioactive. He is fixated on drinking a lot of coffee this morning because he does not want to fall asleep.
[2023-10-21] MEDS: guaiFENesin 600 mg Tablet PO ×2 (08:55→20:17)
[2023-10-21] MEDS: ascorbic acid 500 mg Tablet PO (08:55)
--- NOTE | 2023-10-21 14:33 | W.PM.NPUPNS ---
Subjective NPU Subjective: Colt is a 18-year-old male who had been admitted with psychosis and suzan currently on a 21-day hold. Patient had required multiple as needed medications to help with sleep. He had reported feeling excessively tired from those medications and had appeared more confused this morning as he had spoken to staff about some underwear that had mysteriously disappeared. 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 He had denied any thoughts of hurting himself or others. He stated that he was able to speak with his family members and they were looking forward to him going home soon. He had been redirectable on the milieu. He reported no mood symptoms at this time stating that he felt great . Mental Status Exam MSE Comments: This is a slender well-developed white male in hospital scrubs with limited grooming and eye contact who appeared more tired today. No abnormal involuntary motor movements except for mild psychomotor retardation. He was pleasant and cooperative with exam in mild distress today. Speech was slower in rate, and normal in volume and prosody. Mood described as great His affect appeared subdued today. Thought process was more linear today. Thought content: Patient denied suicidal or homicidal ideation. Less presence of overvalued ideas but still engaged in some bizarre thinking. He denied auditory or visual hallucinations. He denies any current thoughts of self-harm or harm to others. Attention and concentration were intact and memory appeared mostly reliable but none were formally tested. He is alert and oriented x 3. Insight was impaired and judgment was limited, impulse control is improving. Vitals/I&O/Wt Last Vital Signs Temp 98.2 F 10/21/23 12:00 Pulse 112 H 10/21/23 12:00 Resp 18 10/21/23 12:00 BP 112/68 10/21/23 12:00 Pulse Ox 98 10/21/23 12:00 O2 Del Method Room Air 10/21/23 04:00 Data NPU 10/03/23 19:42 10/03/23 19:42 A&P Assessment and plan (1) Acute psychosis: Plan This is a 18-year-old white male with no clear history of mental health treatment with possible history of ADHD and learning issues, with active addiction and concerns for psychosis possibly related to the cannabis use who presents with a unique perspective on life. 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 which may be delusional. He denies any mental health issues, although his behavior led to his admission to the hospital. 1. Patient improving and appeared less sedated today, continue invega 6mg at night and increase klonopin back to 1mg at night. 2. Continue every 15 minute checks for safety. 3. Encourage individual, group and milieu therapies. 4. Obtain collateral information on what his baseline actually is. 5. Encourage sober living treatment after discharge at the highest level of care to which he is willing to commit. 6. Patient placed on 21 day hold today. 7. Patient positive for COVID 19 today. Continue supportive therapy. Involuntary Hold Information 96 Hour Hold: 96 Hour Involuntary Admission: Yes 96 Hour Hold Ending Date: 10/09/23 96 Hour Hold Ending Time: 19:46 Attestations NPU Medical Necessity Statement*: Inpatient hospitalization is medically necessary and the clinically appropriate intervention at this time. We will monitor medication to make changes as indicated. His likely length of stay 3-5 days. Coding Level of Care Code Acute Code for Chg Fwd Diagnoses Acute psychosis F23
[2023-10-21] MEDS: trazodone 50 mg Tablet PO (20:17)
[2023-10-21] MEDS: CLONazepam 0.5 mg Tablet 1 MG PO (20:17)
[2023-10-21] MEDS: paliperidone ER 6 mg Tablet PO (20:17)
[2023-10-22 04:00] VITALS: BP 120/65; PULSE 80; RESP 16; O2SAT 95
[2023-10-22 07:59] VITALS: BP 106/60; PULSE 98; RESP 16; TEMP 36.7; O2SAT 98
[2023-10-22] MEDS: guaiFENesin 600 mg Tablet PO (08:23)
[2023-10-22] MEDS: ascorbic acid 500 mg Tablet PO (08:23)
[2023-10-22 12:00] VITALS: BP 120/72; PULSE 109; RESP 16; TEMP 37.2; O2SAT 99
[2023-10-22] MEDS: paliperidone palmitate 234 mg Syringe IM (12:32)
--- NOTE | 2023-10-22 12:37 | PC.NURSE ---
THIS NURSE ADMINISTERED IM 234MG INJECTION TO PT R DELTOID TODAY 10/22/23. PT WAS COOPERATIVE WITH MEDICATION. THIS NURSE PROVIDED EDUCATION ON MEDICATION MULTIPLE TIMES AND OFFERED DIFFERENT FORMATS. PT COULD USE COME CONTINUED EDUCATION.
[2023-10-22 15:38] VITALS: BP 114/55; PULSE 101; RESP 16; TEMP 37.1; O2SAT 100
--- NOTE | 2023-10-22 15:47 | P.NPUPN_ITS ---
Subjective NPU 2 Subjective: Colt is a 18-year-old male who had been admitted with psychosis and suzan currently on a 21-day hold. Patient has had initially stated that he would not take any medications and would not be agreeable to an injection of Invega prior to his discharge. He had stated that he was offended that the director underwriter sales of this note had discussed God in front of the us administrative law judge at the previous hearing. 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 Patient had slept better. He reported that he had no thoughts of hurting himself or others. He had stated that he had the right to offer up and say anything that he liked in this free [place]. Mental Status Exam 2 MSE Comments: This is a slender well-developed white male in hospital scrubs with limited grooming and eye contact who appeared more irritable. No abnormal involuntary motor movements except for mild psychomotor retardation. He was pleasant and cooperative with exam in mild distress today. Speech was slower in rate, and normal in volume and prosody. Mood described as great His affect appeared subdued and mood incongruent. Thought process was more linear today. Thought content: Patient denied suicidal or homicidal ideation. Less presence of overvalued ideas but still engaged in some bizarre thinking. He denied auditory or visual hallucinations. He denies any current thoughts of self-harm or harm to others. Attention and concentration were intact and memory appeared mostly reliable but none were formally tested. He is alert and oriented x 3. Insight was impaired and judgment was limited, impulse control is improving. Vitals/I&O/Wt Last Vital Signs Temp 98.7 F 10/22/23 15:38 Pulse 101 H 10/22/23 15:38 Resp 16 10/22/23 15:38 BP 114/55 10/22/23 15:38 Pulse Ox 100 10/22/23 15:38 O2 Del Method Room Air 10/22/23 15:38 Data NPU 10/03/23 19:42 10/03/23 19:42 A&P Assessment and plan (1) Acute psychosis: Plan This is a 18-year-old white male with no clear history of mental health treatment with possible history of ADHD and learning issues, with active addiction and concerns for psychosis possibly related to the cannabis use who presents with a unique perspective on life. 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 which may be delusional. He denies any mental health issues, although his behavior led to his admission to the hospital. 1. Patient improving and appeared less sedated today, continue invega 6mg at night and continue klonopin at 1mg at night. IM INvega 234mg given today. 2. Continue every 15 minute checks for safety. 3. Encourage individual, group and milieu therapies. 4. Obtain collateral information on what his baseline actually is. 5. Encourage sober living treatment after discharge at the highest level of care to which he is willing to commit. 6. Patient placed on 21 day hold today. 7. Patient positive for COVID 19 today. Continue supportive therapy. Involuntary Hold Information 2 96 Hour Hold: 96 Hour Involuntary Admission: Yes 96 Hour Hold Ending Date: 10/09/23 96 Hour Hold Ending Time: 19:46 Attestations NPU 2 Medical Necessity Statement*: Inpatient hospitalization is medically necessary and the clinically appropriate intervention at this time. We will monitor medication to make changes as indicated. His likely length of stay 5-7 days. Coding Level of Care Code Acute Code for Chg Fwd Diagnoses Acute psychosis F23
[2023-10-22 19:56] VITALS: BP 108/67; PULSE 99; RESP 18; TEMP 36.9; O2SAT 98
[2023-10-22] MEDS: paliperidone ER 6 mg Tablet PO (20:11)
[2023-10-22] MEDS: CLONazepam 1 mg Tablet PO (20:11)
[2023-10-22 23:42] VITALS: RESP 16
[2023-10-23 04:00] VITALS: BP 137/69; PULSE 100; RESP 18; TEMP 36.8; O2SAT 99
[2023-10-23 07:44] VITALS: BP 124/73; PULSE 90; RESP 16; TEMP 36.6; O2SAT 98
[2023-10-23] MEDS: ascorbic acid 500 mg Tablet PO (08:20)
[2023-10-23 11:47] VITALS: BP 117/75; PULSE 93; RESP 16; TEMP 36.7; O2SAT 98
--- NOTE | 2023-10-23 13:53 | W.PM.NPUPNS ---
Subjective NPU Subjective: Colt is a 18-year-old male who had been admitted with psychosis and suzan currently on a 21-day hold. Patient gave a thumbs up today stating he was feeling better. 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 When asked if he had a real estate license the patient had stated that he did not need this at this time. 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 The patient had reported adequate sleep. He had minimized having any thoughts of hurting himself or others. He reported no side effects from the intramuscular injection of Invega that he received yesterday. Mental Status Exam MSE Comments: This is a slender well-developed white male in hospital scrubs with limited grooming and eye contact who appeared more irritable. No abnormal involuntary motor movements except for mild psychomotor retardation. He was pleasant and cooperative with exam in mild distress today. Speech was slower in rate, and normal in volume and prosody. Mood described as great His affect appeared subdued and mood incongruent. Thought process was more linear today. Thought content: Patient denied suicidal or homicidal ideation. 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 Some overvalued ideas. He denied auditory or visual hallucinations. He denies any current thoughts of self-harm or harm to others. Attention and concentration were intact and memory appeared mostly reliable but none were formally tested. He is alert and oriented x 3. Insight was impaired and judgment was limited, impulse control is improving. Vitals/I&O/Wt Last Vital Signs Temp 98.1 F 10/23/23 11:47 Pulse 93 10/23/23 11:47 Resp 16 10/23/23 11:47 BP 117/75 10/23/23 11:47 Pulse Ox 98 10/23/23 11:47 O2 Del Method Room Air 10/23/23 11:47 Data NPU 10/03/23 19:42 10/03/23 19:42 A&P Assessment and plan (1) Acute psychosis: Plan This is a 18-year-old white male with no clear history of mental health treatment with possible history of ADHD and learning issues, with active addiction and concerns for psychosis possibly related to the cannabis use who presents with a unique perspective on life. 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 which may be delusional. He denies any mental health issues, although his behavior led to his admission to the hospital. 1. Patient improving and appeared less sedated today, continue invega 6mg at night and continue klonopin at 1mg at night. IM INvega 234mg given today. 2. Continue every 15 minute checks for safety. 3. Encourage individual, group and milieu therapies. 4. Obtain collateral information on what his baseline actually is. 5. Encourage sober living treatment after discharge at the highest level of care to which he is willing to commit. 6. Patient placed on 21 day hold today. 7. Patient positive for COVID 19 today. Continue supportive therapy. Involuntary Hold Information 96 Hour Hold: 96 Hour Involuntary Admission: Yes 96 Hour Hold Ending Date: 10/09/23 96 Hour Hold Ending Time: 19:46 Attestations NPU Medical Necessity Statement*: Inpatient hospitalization is medically necessary and the clinically appropriate intervention at this time. We will monitor medication to make changes as indicated. His likely length of stay 4-6 days. Coding Level of Care Code Acute Code for g Fwd Diagnoses Acute psychosis F23
[2023-10-23 16:00] VITALS: BP 110/64; PULSE 107; RESP 16; TEMP 36.7; O2SAT 98
[2023-10-23 19:41] VITALS: BP 110/71; PULSE 100; RESP 16; TEMP 36.7; O2SAT 98
[2023-10-23] MEDS: trazodone 50 mg Tablet PO ×2 (20:08→21:03)
[2023-10-23] MEDS: paliperidone ER 6 mg Tablet PO (20:08)
[2023-10-23] MEDS: CLONazepam 1 mg Tablet PO (20:09)
[2023-10-23] MEDS: hyDROXYzine 25 mg Capsule 50 MG PO (21:03)
[2023-10-23 23:07] VITALS: RESP 16
[2023-10-24 04:00] VITALS: BP 102/64; PULSE 94; RESP 18; TEMP 36.6; O2SAT 98
[2023-10-24 07:45] VITALS: BP 108/71; PULSE 95; RESP 18; TEMP 36.7; O2SAT 98
--- NOTE | 2023-10-24 08:06 | PC.NURSE ---
SITTING ON BENCH BY NURSES STATION. PT IS ALREADY TELLING RN YOUR THE BEST, THE BEST EVER, THANK YOU THANK YOU. RN REDIRECTED PT TO SIT DOWN ON BENCH AND WAIT FOR BREAKFAST. DENIES PAIN. DENIES SI/HI AND AVH AT THIS TIME. RATES ANXIETY AND DEPRESSION 0/10. PT IS NOTED TO HAVE FLAT AFFECT AT TIMES. PT STATES GOAL FOR THE DAY IS TO BE HAPPY, BE POSITIVE AND PLAY FORT NIGHT. RN IN REPORT STATED PT SHOULD DISCHARGE ON FRIDAY TO [place]. WHEN THIS RN MENTIONED DISCHARGE PLAN PT STATED NO I THINK I'M GOING TO STAY HERE. I HAVE TO WIN FORT NIGHT SO WHEN THEY CALL HERE THEY PROBABLY WON'T WANT ME TO WIN ALL THAT MONEY SO I WILL STAY HERE. 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 ALL QUESTIONS WERE ANSWERED AND SUPPORT WAS VOICED.
[2023-10-24] MEDS: ascorbic acid 500 mg Tablet PO (08:33)
[2023-10-24 12:00] VITALS: BP 118/72; PULSE 96; RESP 18; TEMP 36.6; O2SAT 99
--- NOTE | 2023-10-24 13:35 | P.NPUPN_ITS ---
Subjective NPU 2 Subjective: Patient presented today reporting that he was doing okay. He reported that the left he was probably going to get a job. 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 Then later he explained that the job was the new plan for getting the money for 4 night and that his plan was ultimately to get the money and use his first $10,000 from the job to get a [employer] and that then he would be able to make all the money. He reported a plan to move to [place] where there is friends and family but mostly friends that he feels will be supportive of his endeavor. He denied any side effects of the medication. Mental Status Exam 2 MSE Comments: This is a slender well-developed white male in hospital scrubs with limited grooming and eye contact. No abnormal involuntary motor movements except for mild psychomotor retardation. He was pleasant and cooperative with exam in mild distress today. Speech was more normal in rate, and normal in volume and prosody. Mood described as he motioned to thumbs up, his affect appeared slightly subdued and mood incongruent. Thought process was more linear today. Thought content: Patient denied suicidal or homicidal ideation. 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 Some overvalued ideas. He denied auditory or visual hallucinations. He denies any current thoughts of self-harm or harm to others. Attention and concentration were intact and memory appeared mostly reliable but none were formally tested. He is alert and oriented x 3. Insight was impaired and judgment was limited, impulse control is improving. Vitals/I&O/Wt Last Vital Signs Temp 97.8 F 10/24/23 12:00 Pulse 96 10/24/23 12:00 Resp 18 10/24/23 12:00 BP 118/72 10/24/23 12:00 Pulse Ox 99 10/24/23 12:00 O2 Del Method Room Air 10/23/23 16:00 Data NPU 10/03/23 19:42 10/03/23 19:42 A&P Assessment and plan (1) Acute psychosis: Plan This is a 18-year-old white male with no clear history of mental health treatment with possible history of ADHD and learning issues, with active addiction and concerns for psychosis possibly related to the cannabis use who presents with a unique perspective on life. 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 which may be delusional. He denies any mental health issues, although his behavior led to his admission to the hospital. 1. Patient improving and appeared less sedated today, continue invega 6mg at night and continue klonopin at 1mg at night. IM INvega 234mg given today. 2. Continue every 15 minute checks for safety. 3. Encourage individual, group and milieu therapies. 4. Obtain collateral information on what his baseline actually is. 5. Encourage sober living treatment after discharge at the highest level of care to which he is willing to commit. 6. Patient placed on 21 day hold. Will explore whether discharge at the beginning of the week is reasonable. 7. Patient positive for COVID 19. Continue supportive therapy. Involuntary Hold Information 2 96 Hour Hold: 96 Hour Involuntary Admission: Yes 96 Hour Hold Ending Date: 10/09/23 96 Hour Hold Ending Time: 19:46 Attestations NPU 2 Medical Necessity Statement*: Inpatient hospitalization is medically necessary and the clinically appropriate intervention at this time. We will monitor medication to make changes as indicated. His likely length of stay 4-6 days. Coding Level of Care Code Acute Code for g Fwd Diagnoses Acute psychosis F23
[2023-10-24 13:49] VITALS: BP 131/86; PULSE 123; RESP 18; TEMP 37.1; O2SAT 99
[2023-10-24 19:41] VITALS: BP 116/75; PULSE 108; RESP 18; TEMP 36.9; O2SAT 98
[2023-10-24] MEDS: CLONazepam 1 mg Tablet PO (21:00)
[2023-10-24] MEDS: paliperidone ER 6 mg Tablet PO (21:01)
[2023-10-24] MEDS: trazodone 50 mg Tablet PO (21:01)
[2023-10-24] MEDS: hyDROXYzine 25 mg Capsule 50 MG PO (21:01)
[2023-10-25 06:00] VITALS: BP 98/67; PULSE 96; RESP 18; TEMP 36.6; O2SAT 99
--- NOTE | 2023-10-25 07:27 | P.NPUPN_ITS ---
Subjective NPU 2 Subjective: Patient presented today reporting that things are unchanged. 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 He denied any side effects to his medications and reports that he is sleeping well. Mental Status Exam 2 MSE Comments: This is a slender well-developed white male in hospital scrubs with limited grooming and eye contact. No abnormal involuntary motor movements except for mild psychomotor retardation. He was pleasant and cooperative with exam in mild distress today. Speech was more normal in rate, and normal in volume and prosody. Mood described as he motioned to thumbs up, his affect appeared slightly subdued and mood incongruent. Thought process was more linear today. Thought content: Patient denied suicidal or homicidal ideation. 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 Some overvalued ideas. He denied auditory or visual hallucinations. He denies any current thoughts of self-harm or harm to others. Attention and concentration were intact and memory appeared mostly reliable but none were formally tested. He is alert and oriented x 3. Insight was impaired and judgment was limited, impulse control is improving. Vitals/I&O/Wt Last Vital Signs Temp 97.8 F 10/25/23 06:00 Pulse 96 10/25/23 06:00 Resp 18 10/25/23 06:00 BP 98/67 10/25/23 06:00 Pulse Ox 99 10/25/23 06:00 O2 Del Method Room Air 10/25/23 06:00 Data NPU 10/03/23 19:42 10/03/23 19:42 A&P Assessment and plan (1) Acute psychosis: Plan This is a 18-year-old white male with no clear history of mental health treatment with possible history of ADHD and learning issues, with active addiction and concerns for psychosis possibly related to the cannabis use who presents with a unique perspective on life. 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 which may be delusional. He denies any mental health issues, although his behavior led to his admission to the hospital. 1. Patient improving and appeared less sedated today, continue invega 6mg at night and continue klonopin at 1mg at night. IM INvega 234mg given today. 2. Continue every 15 minute checks for safety. 3. Encourage individual, group and milieu therapies. 4. Obtain collateral information on what his baseline actually is. 5. Encourage sober living treatment after discharge at the highest level of care to which he is willing to commit. 6. Patient placed on 21 day hold. Will explore whether discharge at the beginning of the week is reasonable. 7. Patient positive for COVID 19. Continue supportive therapy. Involuntary Hold Information 2 96 Hour Hold: 96 Hour Involuntary Admission: Yes 96 Hour Hold Ending Date: 10/09/23 96 Hour Hold Ending Time: 19:46 Attestations NPU 2 Medical Necessity Statement*: Inpatient hospitalization is medically necessary and the clinically appropriate intervention at this time. We will monitor medication to make changes as indicated. His likely length of stay 2-5 days. Coding Level of Care Code Acute Code for [place] Fwd Diagnoses Acute psychosis F23
[2023-10-25] MEDS: ascorbic acid 500 mg Tablet PO (08:15)
[2023-10-25 14:00] VITALS: BP 120/68; PULSE 118; RESP 18; TEMP 37.2; O2SAT 98
[2023-10-25 20:17] VITALS: BP 123/80; PULSE 101; RESP 18; TEMP 37.1; O2SAT 99
[2023-10-25] MEDS: docusate sodium 100 mg Capsule PO (20:57)
[2023-10-25] MEDS: paliperidone ER 6 mg Tablet PO (20:58)
[2023-10-25] MEDS: trazodone 50 mg Tablet PO (20:58)
[2023-10-25] MEDS: hyDROXYzine 25 mg Capsule 50 MG PO (20:58)
[2023-10-25] MEDS: CLONazepam 1 mg Tablet PO (20:58)
[2023-10-26 06:00] VITALS: BP 100/60; PULSE 88; RESP 16; O2SAT 98
[2023-10-26] MEDS: docusate sodium 100 mg Capsule PO (08:12)
[2023-10-26] MEDS: ascorbic acid 500 mg Tablet PO (08:12)
--- NOTE | 2023-10-26 08:59 | PC.NURSE ---
Patient denies avh and si/hi. He endorses sleeping well and denies any pain this morning. Patient has been very intrusive and asking for coffee approximately every 20-30 minutes. Staff has told him multiple times that he has been limited to 1 cup every hour per doctor's orders, however he continues to ask often. When this RN asked him if there was anything we could help him with this morning he replied, yes. Ranjeet. Ranjeet. Ranjeet. He then began talking extensively about the game. Patient also hyperfocused on wanting to receive a laxative although he endorses having a bowel movement today and yesterday. Upon further questioning it was determined that he might benefit from a stool softener. He was agreeable to this.
--- NOTE | 2023-10-26 09:49 | P.NPUPN_ITS ---
Subjective NPU 2 Subjective: Patient presented today reporting that he is feeling good. He identified that he is continuing to work with his family and friends with a plan [place] [facility] [place] He denies any issues with the medication and reports being excited about the possibility of discharge soon. Mental Status Exam 2 MSE Comments: This is a slender well-developed white male in hospital scrubs with limited grooming and eye contact. No abnormal involuntary motor movements except for mild psychomotor retardation.He was pleasant and cooperative with exam in mild distress today. Speech was more normal in rate, and normal in volume and prosody.Mood described as he motioned to thumbs up, his affect appeared slightly subdued and mood incongruent. Thought process was more linear today.Thought content: Patient denied suicidal or homicidal ideation. 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 Some overvalued ideas. He denied auditory or visual hallucinations. He denies any current thoughts of self-harm or harm to others. Attention and concentration were intact and memory appeared mostly reliable but none were formally tested. He is alert and oriented x 3. Insight was impaired and judgment was limited, impulse control is improving. Vitals/I&O/Wt Last Vital Signs Temp 98.7 F 10/25/23 20:17 Pulse 88 10/26/23 06:00 Resp 16 10/26/23 06:00 BP 100/60 10/26/23 06:00 Pulse Ox 98 10/26/23 06:00 O2 Del Method Room Air 10/26/23 06:00 Weight last 48 hrs Weight 82.157 kg Data NPU 10/03/23 19:42 10/03/23 19:42 A&P Assessment and plan (1) Acute psychosis: Plan This is a 18-year-old white male with no clear history of mental health treatment with possible history of ADHD and learning issues, with active addiction and concerns for psychosis possibly related to the cannabis use who presents with a unique perspective on life. 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 which may be delusional. He denies any mental health issues, although his behavior led to his admission to the hospital. 1. Patient improving and appeared less sedated today, continue invega 6mg at night and continue klonopin at 1mg at night. IM Invega 234mg given today. 2. Continue every 15 minute checks for safety. 3. Encourage individual, group and milieu therapies. 4. Obtain collateral information on what his baseline actually is. 5. Encourage sober living treatment after discharge at the highest level of care to which he is willing to commit. 6. Patient placed on 21 day hold. Will explore whether discharge at the beginning of the week is reasonable. 7. Patient positive for COVID 19. Continue supportive therapy. Involuntary Hold Information 2 96 Hour Hold: 96 Hour Involuntary Admission: Yes 96 Hour Hold Ending Date: 10/09/23 96 Hour Hold Ending Time: 19:46 Attestations NPU 2 Medical Necessity Statement*: Inpatient hospitalization is medically necessary and the clinically appropriate intervention at this time. We will monitor medication to make changes as indicated. His likely length of stay 2-4 days. Coding Level of Care Code Acute Code for Chg Fwd Diagnoses Acute psychosis F23
[2023-10-26 14:00] VITALS: BP 102/63; PULSE 114; RESP 18; TEMP 37.3; O2SAT 99
[2023-10-26] MEDS: trazodone 50 mg Tablet PO (20:18)
[2023-10-26] MEDS: CLONazepam 1 mg Tablet PO (20:18)
[2023-10-26] MEDS: paliperidone ER 6 mg Tablet PO (20:18)
[2023-10-26] MEDS: OLANZapine 5 mg ODT PO (21:33)
[2023-10-26 21:41] VITALS: BP 120/74; PULSE 104; RESP 18; TEMP 37.3; O2SAT 97
[2023-10-27 06:00] VITALS: BP 109/66; PULSE 110; RESP 18; TEMP 36.1; O2SAT 97
[2023-10-27] MEDS: ascorbic acid 500 mg Tablet PO (08:19)
[2023-10-27 14:00] VITALS: BP 99/55; PULSE 112; RESP 16; TEMP 37.3; O2SAT 98
[2023-10-27 17:26] VITALS: BP 99/55; PULSE 112; RESP 16; TEMP 37.3; O2SAT 98
[2023-10-27] MEDS: paliperidone palmitate 156 mg Syringe IM (17:47)
== END 2023-10-27 18:03 | disposition home or self-care (01) | DRG 897 ==
LOC: ER 10-05 08:43 → NP 10-05 14:26
PROVIDERS: Emergency Medicine; Admitting Provider Psychiatry & Neurology Psychiatry; Emergency Provider Emergency Medicine; Family Provider Pediatrics Adolescent Medicine; Visit Provider Psychiatry & Neurology Psychiatry
DX: F12.959 Cannabis use, unspecified with psychotic disorder, unspecified (principal); F30.9 Manic episode, unspecified; G47.00 Insomnia, unspecified
CPT/HCPCS: 80053; 80306; 80307; 81003; 81015; 84443; 85025; 85610; 87426; 87635; 87804; 87899; 93005; 96372; 97150; 97165; 99285; J1200; J1630; J2060; J3490

== ENCOUNTER 2024-01-03 14:52 | Emergency (ER) | payer MEDICAID, SELFPAY ==
--- NOTE | 2024-01-03 14:53 | XRR_ITS ---
PROCEDURE INFORMATION: Exam: XR Abdomen Exam date and time: 01/03/2024 3:08 PM Age: 18 years old Clinical indication: Constipation; Additional info: Constipation x 10 days. TECHNIQUE: Imaging protocol: Radiologic exam of the abdomen. Views: Frontal supine view of the abdomen. 1 View. COMPARISON: No relevant prior studies available. FINDINGS: Gastrointestinal tract: [id number] fecal burden. No bowel dilation. Bones/joints: Unremarkable. XR/XR KUB [id number] IMPRESSION: No acute findings.
[2024-01-03 14:56] VITALS: BP 124/76; PULSE 92; RESP 16; TEMP 36.7; O2SAT 99
--- NOTE | 2024-01-03 15:08 | ED_ITS ---
HPI - Abdominal Pain General: Chief Complaint: Abdominal Pain Stated Complaint: constpiation Time Seen by Provider: 01/03/24 14:58 History of Present Illness: Patient is a 18-year-old male that presents to the emergency department with 10- day history of constipation. Patient states he took a stool softener yesterday but has not taken any additional medications. Patient has a medical history that includes psychosis. He takes clonazepam, olanzapine, trazodone and Invega Associated Symptoms: Denies chills, fever(s), nausea and vomiting Related Data Previous Rx's Medication Instructions Recorded clonazepam 1 mg tablet 1 mg PO BEDTIME 30 days #30 tabs 10/27/23 olanzapine 5 mg disintegrating 5 mg PO DAILY PRN 10/27/23 tablet Agitation/Psychosis 30 days #30 tabs paliperidone palmitate 156 mg/mL 156 mg IM Q30D #1 mL 10/27/23 intramuscular syringe (Invega Sustenna) trazodone 50 mg tablet 30 mg (0.6 x 50 mg) PO BEDTIME PRN 10/27/23 Sleep #30 tabs sennosides 8.6 mg-docusate sodium 1 tab-cap PO BID #60 tabs 01/03/24 50 mg tablet (Senna with Docusate Sodium) Allergies Allergy/AdvReac Type Severity Reaction Status Date / Time No Known Allergies Allergy Verified 01/03/24 14:59 Review of Systems General: Reports: 10 or more systems reviewed and unremarkable except in HPI and below Const: Denies: fever(s), chills, fatigue or malaise Eyes: Denies: change in vision or blurry vision Card: Denies: chest pain or palpitations Resp: Denies: dyspnea or productive cough GI: Denies: abdominal pain, nausea or vomiting : Denies: flank pain Musc: Denies: extremity pain or extremity swelling Skin/Breast: Denies: rash or pruritus Neuro: Denies: headache(s) Psych: Reports: depression, visual hallucinations, auditory hallucinations, suicidal ideation and homicidal ideation; Denies: anxiety Jacobo/Lymph: Denies: easy bleeding All/Imm: Denies: urticaria, throat swelling or facial swelling Physical Exam Const: COMMON NORMALS: no acute distress, patient oriented x3 and healthy appearing HENMT: COMMON NORMALS: normocephalic and atraumatic HEAD & SCALP: normocephalic and atraumatic Eye: COMMON NORMALS: Equal, round and reactive pupils present and EOMs intact bilaterally PUPIL: Yes Equal, round and reactive pupils present Neck/C-Spine: COMMON NORMALS: full ROM, supple and no JVD Lymph: LYMPHATIC: no lymphadenopathy noted Chest: COMMONS NORMALS: normal inspection of the chest and normal palpation of entire chest wall Resp: COMMON NORMALS: normal respiratory effort, No retractions and clear to auscultation bilaterally EFFORT & INSPECTION: Yes able to speak in complete sentences and Yes symmetric chest movement AUSCULTATION: clear to auscultation bilaterally Cardio: COMMON NORMALS: no JVD, regular rate and regular rhythm RATE: regular rate RHYTHM: regular rhythm GI: COMMON NORMALS: Normal to inspection, nondistended, normoactive bowel sounds present, Soft to palpation and non-tender INSPECTION: Yes normal to inspection PALPATION: Yes Soft to palpation : COMMON NORMALS: Yes no CVA tenderness BLADDER/KIDNEY EXAM: Yes no CVA tenderness Back/Pelvis: COMMON NORMALS: no CVA tenderness Extremity: COMMON NORMALS: normal to inspection and full ROM Neuro: COMMON NORMALS: patient oriented x3, CN's II-XII intact bilaterally, moves all extremities and no focal motor deficits Psych: COMMON NORMALS: mental status grossly normal, Normal thought process present and cooperative THOUGHT PROCESS: Normal thought process present Skin: COMMON NORMALS: no rashes or lesions noted GENERAL SKIN EXAM: no rashes or lesions noted Course Vital Signs: Vital signs: Vital Signs Temperature 98.1 F 01/03/24 14:56 Pulse Rate 92 01/03/24 14:56 Respiratory Rate 16 01/03/24 14:56 Blood Pressure 124/76 01/03/24 14:56 Pulse Oximetry 99 01/03/24 14:56 Oxygen Delivery Me thod Room Air 01/03/24 14:56 MDM - Abdominal Pain Medical Decision Making Patient evaluated in the emergency department today for constipation. He underwent XR imaging for KUB which revealed constipation without obstruction. We gave the patient mag citrate here in the emergency department as well as a bottle to take home with him. We are also sending him home with a fleets enema. Patient will also be prescribed stool softeners and instructed to use laxatives as needed. Patient is unsure if he has a primary care doctor. Case management consulted to help with establishing care. XR interpretation done by ED provider, pending radiology final review Discharge Plan Discharge Patient Disposition: Home Clinical Impression: Constipation Condition: Stable Prescriptions: New sennosides-docusate sodium [Senna with Docusate Sodium] 8.6-50 mg tablet 1 tab-cap PO BID Qty: 60 0RF No Action Invega Sustenna 156 mg/mL syringe 156 mg IM Q30D Qty: 1 2RF Rx Instructions: Next injection 11/26/2023 and then as directed. trazodone 50 mg Tablet 30 mg PO BEDTIME PRN (Reason: Sleep) Qty: 30 1RF clonazepam 1 mg Tablet 1 mg PO BEDTIME 30 Days Qty: 30 1RF Rx Instructions: Can consider decreasing to one half tab at night if sleep returns to normal olanzapine 5 mg Tablet,Disintegrating 5 mg PO DAILY PRN (Reason: Agitation/Psychosis) 30 Days Qty: 30 1RF Discharge Orders: Discharge ED (Routine); Ordered 01/03/24 Ordered By: Jeanne De La Torre Referrals: Dilan Ramirez Jr, MD [Family Provider] - Discharge Diet: Advance as tolerated Discharge Activity: Resume usual activity Patient Instructions: Pain Management, Constipation - Adult Activity Restrictions/Additional Instructions: Please take the mag citrate bottle in the morning if you have not had a bowel movement. I am also sending you home with an enema. This is inserted in the rectum and the fluid is flushed into the rectum. This will help relieve constipation as well. I prescribed you Colace. This is a medication you can take twice a day. Other aids that you can use at home include MiraLAX. Please follow-up with your primary care doctor. Return here as needed for new concerning or worsening symptoms Coding Level of Care Code ED Almond Blancher Operator for Cristopher Sheppard
[2024-01-03] MEDS: magnesium citrate Btl 296 mL PO (15:21)
[2024-01-03] MEDS: magnesium citrate Btl 296 mL 150 ML PO (15:22)
[2024-01-03] MEDS: Fleet Enema 133 mL Enema PR (15:44)
[2024-01-03 15:45] VITALS: BP 129/80; PULSE 87; O2SAT 99
[2024-01-03 15:47] VITALS: BP 129/80; PULSE 88; O2SAT 99
--- NOTE | 2024-01-05 09:16 | DCPLANNER ---
messaged mtn view to est PCP
== END 2024-01-03 15:57 | disposition home or self-care (01) ==
PROVIDERS: Emergency Provider Nurse Practitioner; Family Provider Pediatrics Adolescent Medicine
DX: K59.00 Constipation, unspecified (principal)
CPT/HCPCS: 74018; 99283